=== PATIENT | male | born 2000 | race Hispanic/Latino ===

== ENCOUNTER 2019-09-23 21:35 | Emergency (ER) | payer SELFPAY ==
[2019-09-23 22:01] LABS: Absolute Lymphocytes (CBC) 1.7 K/uL (0.7-4.9); Basophils % 0.6 % (0-1.3); Hematocrit 39.7 % (39.6-49.0); Lymphocytes % 21.8 % (15.3-44.8); MPV 9.8 fL (7.6-11.3); RBC Red Blood Cell Count 4.36 M/uL (4.33-5.43)
[2019-09-23] MEDS ORDERED: NA CHLORIDE 0.9% 0 ML ONE (22:08)
[2019-09-23 22:14] LABS: Potassium 3.1 mmol/L (3.5-5.1)
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
[2019-09-23] MEDS ORDERED: DIAZEPAM 5 MG TABLET ONE (22:48)
[2019-09-23] MEDS ORDERED: POTASSIUM 25 MEQ EFFERV TAB ONE (22:48)
[2019-09-23 23:12] VITALS: BP 111/70; O2SAT 100
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
== END 2019-09-23 23:02 | disposition home or self-care (01) ==
LOC: ER 21:35
DX: S40.012A Contusion of left shoulder, initial encounter (principal); E87.6 Hypokalemia; V43.53XA Car driver injured in collision with pick-up truck in traffic accident, initial encounter
CPT/HCPCS: 36415; 70450; 71260; 72125; 74177; 80048; 85025; 86850; 86900; 86901; 99284; J7030; Q9967

== ENCOUNTER 2022-05-16 16:27 | Emergency (ER) | payer SELFPAY ==
--- OUTSIDE RECORDS SUMMARY | 2022-05-16 16:30 | XMS REPORT | Continuity of Care Document ---
:2000 Author Organization [facility] t Address [address] [place] [address] Care Team Providers Name Role Phone Pcp, Patient Does Not Have A Primary Care Physician [phone] KIA GILMAN Attending Clinician Unavailable Kia Diez Attending Clinician Problems This patient has no known problems. Allergies, Adverse Reactions, Alerts Allergy Allergy Status Severity Reaction(s) Onset Inactive Treating Comm ents Source Name Type Date Date Clinician NO KNOWN Drug Active Univers ALLERGIE Class ity of [facility] Social History Social Habit Start Date Stop Date Quantity Comments Source Exposure to Not sure [facility] SARS-CoV-2 (event) Medica l Branch Sex Assigned At [birth year] [facility] 00:00:00 00:00:00 Medical [place] Smoking Status Start Date Stop Date Source Unknown if ever smoked [facility] Medications Ordered Filled Start Stop Current Ordering Indication Dosage Frequency Signature Comments Components Source Medication Medication Date Date Medication? Clinician (SIG) Name Name ondansetron 2020-05- No 4mg 4 mg, Univ ers (ZOFRAN-ODT 05-21 Oral, ity of ) 04:45: 03:59 ONCE, 1 [place] disintegrat 00 :00 dose, On Medi usjey ing tablet Mon Branch 4 mg 03/20/21 at 2245, Routine ondansetron 2020-05 Yes [id number] 4mg Take 1 Univers (ZOFRAN 1-08 tablet by ity of ODT) 4 mg 00:00: mouth [place] disintegrat 00 every 8 Medic al ing tablet (eight) Branch hours as needed for Nausea and Vomiting (N/V). Vital Signs Vital Name Observation Time Observation Value Comments Source Systolic blood 2021-03-21 01:34:00 168 mm[Hg] [facility] Diastolic blood 2021-03-21 01:34:00 98 mm[facility]Hg] [facility] Heart rate 2021-03-21 01:33:00 94 /min [facility] Body temperature 2021-03-21 01:33:[address] [facility] Respiratory rate 2021-03-21 01:33:00 20 /min [facility] Body weight 2021-03-21 01:33:00 81.647 kg [facility] Oxygen saturation in 2021-03-21 01:33:00 100 /min [facility] Arterial blood by [facility] Pulse oximetry Branch Procedures Procedure Date / Time Performed Performing Clinician Sour e ASSIGNMENT OF BENEFITS 2021-03-21 02:13:57 Doctor Unassigned, No [facility] Branch NOTICE OF PRIVACY 2021-03-21 02:13:40 Doctor Unassigned, No [facility] CONSENT/REFUSAL FOR 2021-03-21 02:13:25 Doctor Unassigned, No [facility] DIAGNOSIS AND [facility] TREATMENT LIPASE 2021-03-21 02:05:00 Kia Gilman [facility] COMP. METABOLIC PANEL 2021-03-21 02:05:00 Kia Gilman [facility] ([id number]) [facility] CBC WITH DIFF 2021-03-21 02:05:00 Kia Gilman [facility] URINALYSIS 2021-03-21 02:05:00 Kia Gilman [facility] Encounters Start End Encounter Admission Attending Care Care Encounter Source Date/Time Date/Time Type Type Clinicians Facility Department ID 2021-03-20 2021-03-20 Emergency X HARI GILMAN ERT [id number] Univers 19:35:00 22:33:00 KIA shah [facility] 2021-03-20 2021-03-20 Emergency HARI Gilman [id number] Univers 19:35:00 22:33:00 [facility] [id number] i ty of [place] [id number] [facility] [id number] [facility] 084 Branch Results Test Description Test Time Test Comments Results Result Comments Source COMP. METABOLIC PANEL (77322) 2021-03-21 02:32:53 Test Item Value Reference Range Interpretation Comme nts NA (test code = 9670728485) 139 mmol/L 135-145 K (test code = 4670307021) 4.2 mmol/L 3.5-5.0 CL (test code = 2932575436) 99 mmol/L 98-108 CO2 TOTAL (test code = 6477075761) 30 mmol/L 23-31 AGAP (test code = 3939633864) 2-16 BUN (test code = 4349669633) 3 mg/dL 7-23 L GLUCOSE (test code = 0100793311) 112 mg/dL 70-110 H CREATININE (test code = 0.78 mg/dL 0.60-1.25 1789061696) TOTAL BILI (test code = 0.6 mg/dL 0.1-1.9 1385175099) CALCIUM (test code = 2610482451) 9.8 mg/dL 8.6-10.6 T PROTEIN (test code = 9481544399) 7.4 g/dL 6.3-8.2 ALBUMIN (test code = 8959047462) 4.6 g/dL 3.5-5.0 ALK PHOS (test code = 1868727344) 100 U/L 34-122 ALTv (test code = 1742-6) 39 U/L 5-50 AST(SGOT) (test code = 3579821375) 40 U/L 13-40 eGFR (test code = 4321802571) mL/min/1.73m2 ZACKARY (test code = ZACKARY) Association of Glomerular Filtration Rate (GFR) and Staging of Kidney Disease* + +-------- + ------+| GFR (mL/min/1.73 m2) ?| With Kidney Damage ?| ?Without Kidney Damage+ +-- + +| ?>90 ?| ?Stage one ?| ? Normal ?+ +------- + -------+| ?60-89 ?| ?Stage two ?| ? Decreased GFR ? + +-------- + ------+| ?30-59 ?| ?Stage three ?| ? Stage three ? + +-------- + ------+| ?15-29 ?| ?Stage four ? | ? Stage four ?+ +------- + -------+| ?<15 (or dialysis) ? ?| ?Stage five ? | ? Stage five ?+ +------- + -------+ *Each stage assumes the associated GFR level has been in effect for at least three months. ?Stages 1 to 5, with or without kidney disease, indicate chronic kidney disease. Notes: Determination of stages one and two (with eGFR >59mL/min/1.73 m2) requires estimation of kidney damage for at least three months as defined by structural or functional abnormalities of the kidney, manifested by either:Pathological abnormalities or Markers of kidney damage (including abnormalities in the composition of the blood or urine or abnormalities in imaging tests). Lab Interpretation (test code = Abnormal 70118-6) [facility] Test Item Value Reference Range Interpretation Comments LIPASE (test code = 2832181201) 80 U/L 0-220 Lab Interpretation (test code = Normal 40809-4) [facility] WITH [id number] 02:17:55 Test Item Value Reference Range Interpretation Comments WBC (test code = See_Comment [Automated 1784-2) message] The sy stem which generated this result transmitted reference range : 4.20 - 10.70 10*3/?L. The reference range was not used to interpret this result as normal/abnormal . RBC (test code = See_Comment [Automated 648-8) message] The sy stem which generated this result transmitted reference range : 4.26 - 5.52 10*6/?L. The reference range was not used to interpret this result as normal/abnormal . HGB (test code = 14.3 g/dL 12.2-16.4 718-7) HCT (test code = 42.6 % 38.4-49.3 4544-3) MCV (test code = 89.3 fL 81.7-95.6 787-2) MCH (test code = 30.0 pg 26.1-32.7 785-6) MCHC (test code = 33.6 g/dL 31.2-35.0 786-4) RDW-SD (test code = 39.8 fL 38.5-51.6 47783-1) RDW-CV (test code = 12.2 % 12.1-15.4 788-0) PLT (test code = See_Comment [Automated 777-3) message] The sy stem which generated this result transmitted reference range : 150 - 328 10*3/ ?L. The reference r abner was not used to interpret this result as normal/abnormal . MPV (test code = 10.5 fL 9.8-13.0 53172-3) NRBC/100 WBC (test See_Comment [Automat ed code = 2129185339) message] The system which generated this result transmitted reference range : 0.0 - 10.0 /100 WBCs. The refer ence range was not u sed to interpret th is result as normal/abnormal . NRBC x10^3 (test code <0.01 See_Comment [Auto mated = 3748159016) message] The s ystem which generated this result transmitted reference range : 10*3/?L. The reference range was not used to interpret this result as normal/abnormal . GRAN MAT (NEUT) % 60.5 % (test code = 770-8) IMM GRAN % (test code 0.90 % = 4120287453) LYMPH % (test code = 24.2 % 736-9) MONO % (test code = 9.0 % 5905-5) EOS % (test code = 4.4 % 713-8) BASO % (test code = 1.0 % 706-2) GRAN MAT x10^3(ANC) 6.46 10*3/uL 1.99-6.95 (test code = 2265299643) IMM GRAN x10^3 (test 0.10 10*3/uL 0.00-0.06 H code = 8956152189) LYMPH x10^3 (test code 2.59 10*3/uL 1.09-3.23 = 731-0) MONO x10^3 (test code 0.96 10*3/uL 0.36-1.02 = 742-7) EOS x10^3 (test code = 0.47 10*3/uL 0.06-0.53 711-2) BASO x10^3 (test code 0.11 10*3/uL 0.01-0.09 H = 704-7) Lab Interpretation Abnormal (test code = 84246-9) [facility]"
[2022-05-16 17:05] LABS: Urine Blood Negative (Negative); Urine Glucose Negative (Negative); Urine Protein Negative (Negative); Urine Specific Gravity >=1.030 (1.005-1.030)
[2022-05-16] MEDS ORDERED: NA CHLORIDE 0.9% 500 ML ONE (17:12)
[2022-05-16 17:14] LABS: Absolute Lymphocytes (CBC) 2.2 K/uL (0.7-4.9); Hematocrit 38.7 % (39.6-49.0); Lymphocytes % 20.2 % (15.3-44.8); MCV 87.4 fL (80-100); RBC Red Blood Cell Count 4.43 M/uL (4.33-5.43)
[2022-05-16 17:23] LABS: Urine Bacteria None Seen /HPF (<20); Urine Mucus Slight /HPF (None Seen); Urine RBC <5 /HPF (None Seen)
[2022-05-16 17:31] LABS: Albumin 3.5 g/dL (3.4-5.0); Bilirubin Total 0.6 mg/dL (0.2-1.0); Potassium 3.8 mmol/L (3.5-5.1)
[2022-05-16] MEDS ORDERED: FAMOTIDINE 20 MG/2 ML VIAL IV ONE (17:37)
[2022-05-16] MEDS ORDERED: ONDANSETRON 4 MG/2 ML VIAL ONE (17:37)
[2022-05-16] MEDS ORDERED: MORPHINE 4 MG/ML SYR ONE (17:37)
[2022-05-16] MEDS ORDERED: NA CHLORIDE 0.9% 1,000 ML ONE (17:37)
--- NOTE | 2022-05-16 18:06 | RAD REPORT ---
EXAM DESCRIPTION: CT - Abdomen Pelvis W Contrast - 05/16/2022 5:53 pm CLINICAL HISTORY: Abdominal pain COMPARISON: none. TECHNIQUE: Computed axial tomography of the abdomen pelvis was obtained. 100 cc Isovue-300 was admin istered intravenously. Oral contrast was not requested which limits evaluation of bowel and appendix All CT scans are performed using dose optimization technique as appropriate and may include automated exposure control or mA/KV adjustment according to patient size. FINDINGS: The liver, spleen, pancreas, adrenal and kidneys appear unremarkable. There is no evidence of diverticulitis. Normal appendix. Small bilateral inguinal hernias. Small inguinal hernias IMPRESSION: No acute abnormality is displayed.
[2022-05-16] MEDS ORDERED: KETOROLAC 30 MG/ML INJ ONE (18:35)
--- NOTE | 2022-05-16 19:13 | EDPHYS ---
Physician Documentation [facility] Name: Manny Rapp Age: 22 yrs Sex: Male : 2000 Arrival Date: 05/16/2022 Time: 16:30 Bed 7 Private MD: ED Physician Christopher Hankins HPI: 05/16 23:38 This 22 yrs old Male presents to ER via Ambulatory with complaints of kb Abdominal Pain. 23:38 The patient presents with abdominal pain in the left upper quadrant, in the left lower kb quadrant. Onset: The symptoms/episode began/occurred 3 day(s) ago. The symptoms do not radiate. Associated signs and symptoms: Pertinent positives: nausea and vomiting, Pertinent negatives: constipation, diarrhea, fever. The symptoms are described as constant. Modifying factors: The symptoms are alleviated by nothing, the symptoms are aggravated by nothing. Severity of pain: At its worst the pain was moderate in the emergency department the pain is unchanged. The patient has not experienced similar symptoms in the past. The patient has not recently seen a physician. Historical: - Allergies: 17:17 No Known Allergies; ap3 - Home Meds: 17:17 None [Active]; ap3 - PMHx: 17:17 None; ap3 - Immunization history:: Client reports having NOT received the Covid vaccine. Flu vaccine is not up to date. - Social history:: Smoking status: Reported history of juuling and/or vaping. ROS: 23:37 Constitutional: Negative for fever, chills, and weight loss. kb 23:37 Abdomen/GI: Positive for abdominal pain, nausea and vomiting, Negative for diarrhea, constipation. 23:37 All other systems are negative. Exam: 23:37 Constitutional: This is a well developed, well nourished patient who is awake, alert, kb and in no acute distress. Head/Face: Normocephalic, atraumatic. ENT: Moist Mucous membranes Cardiovascular: Regular rate and rhythm with a normal S1 and S2. No gallops, murmurs, or rubs. No pulse deficits. Respiratory: Respirations even and unlabored. No increased work of breathing. Talking in full sentences Skin: Warm, dry with normal turgor. Normal color. MS/ Extremity: Pulses equal, no cyanosis. Neurovascular intact. Full, normal range of motion. Neuro: Awake and alert, GCS 15, oriented to person, place, time, and situation. Moves all extremities. Normal gait. Psych: Awake, alert, with orientation to person, place and time. Behavior, mood, and affect are within normal limits. 23:37 Abdomen/GI: Inspection: abdomen appears normal, Bowel sounds: normal, Palpation: soft, in all quadrants, mild abdominal tenderness, in the left upper quadrant and left lower quadrant. Vital Signs: 17:16 BP 124 / 84; Pulse 86; Resp 17; Temp 98.4; Pulse Ox 100% ; Weight 90.72 kg; Height 5 ap3 ft. 11 in. (180.34 cm); Pain 8/10; 17:59 Pulse 87; Resp 18; Temp 98.6(O); Pulse Ox 99% on R/A; ld1 18:34 BP 123 / 81; Pulse 66; Resp 18; Pulse Ox 100% on R/A; Pain 8/10; ld1 17:16 Body Mass Index 27.89 (90.72 kg, 180.34 cm) ap3 MDM: 16:34 Patient medically screened. patrick 17:22 Patient medically screened. kb 23:36 Data reviewed: vital signs, nurses notes. Data interpreted: Pulse oximetry: on room air kb is 100 %. Interpretation: normal. Counseling: I had a detailed discussion with the patient and/or guardian regarding: the historical points, exam findings, and any diagnostic results supporting the discharge/admit diagnosis, lab results, radiology results, the need for outpatient follow up, a family practitioner, to return to the emergency department if symptoms worsen or persist or if there are any questions or concerns that arise at home. 23:37 Differential diagnosis: diverticulitis, gastritis, gastroesophageal reflux disease, kb Ureterolithiasis. 05/16 16:35 Order name: CBC with Diff; Complete Time: 17:19 patrick 05/16 16:35 Order name: CMP; Complete Time: 18:34 patrick 05/16 16:35 Order name: Lipase; Complete Time: 18:34 patrick 05/16 16:35 Order name: Urine Microscopic Only; Complete Time: 17:23 patrick 05/16 16:35 Order name: CT Abd/Pelvis - IV Contrast Only; Complete Time: 18:34 patrick 05/16 17:05 Order name: Urine Dipstick-Ancillary; Complete Time: 17:18 EDMS 05/16 16:35 Order name: IV Saline Lock; Complete Time: 17:06 [facility] 05/16 16:35 Order name: Labs collected and sent; Complete Time: 17:06 [facility] 05/16 16:35 Order name: Urine Dipstick-Ancillary (obtain specimen); Complete Time: 17:06 [facility] Administered Medications: 17:35 Drug: NS 0.9% 1000 ml Route: IV; Rate: 1 bolus; Site: left antecubital; mb9 18:04 Follow up: Response: No adverse reaction ld1 17:38 Drug: Pepcid (famotidine) 20 mg Route: IVP; Site: left antecubital; mb9 18:04 Follow up: Response: No adverse reaction ld1 17:38 Drug: Zofran (Ondansetron) 4 mg Route: IVP; Site: left antecubital; mb9 18:04 Follow up: Response: No adverse reaction ld1 17:44 Drug: morphine 4 mg Route: IVP; Infused Over: 4 mins; Site: left antecubital; mb9 18:05 Follow up: Response: No adverse reaction; Pain is decreased ld1 18:37 Drug: Ketorolac 15 mg Route: IVP; Site: left antecubital; ld1 18:56 Follow up: Response: No adverse reaction ld1 Disposition Summary: 05/16/22 19:12 Discharge Ordered Location: Home kb Condition: Stable kb Diagnosis - Abdominal pain, Generalized kb Followup: kb - With: Emergency Department - When: As needed - Reason: Worsening of condition Followup: kb - With: Private Physician - When: 2 - 3 days - Reason: Recheck today's complaints, Continuance of care, Re-evaluation by your physician Discharge Instructions: - Discharge Summary Sheet kb - Abdominal Pain, Adult, [id number] kb Forms: - Medication Reconciliation Form kb - Thank You Letter kb - Antibiotic Education kb - Prescription Opioid Use kb Prescriptions: - Zofran 4 mg Oral Tablet - take 1 tablet by ORAL route every 6 hours As needed; 20 tablet; Refills: 0, kb Product Selection Permitted - dicyclomine 20 mg Oral Tablet - take 1 tablet by ORAL route 4 times per day As needed; 20 tablet; Refills: 0, kb Product Selection Permitted Signatures: Dispatcher [employer] EDRuth Jasso FNP-C ESCROW ASSISTANT-Christopher Irwin MD MD cha Prokisch, Amanda, RN RN ap3 Stefany Rodriguez RN RN ld1 Lady Trivedi, RN RN mb9
--- NOTE | 2022-05-16 19:13 | ER ---
Nurse's Notes [facility] Name: Manny Rapp Age: 22 yrs Sex: Male : 2000 Arrival Date: 05/16/2022 Time: 16:30 Bed 7 Private MD: Diagnosis: Abdominal pain, Generalized Presentation: 05/16 17:16 Chief complaint: Patient states: he has pain on his left side that has been going on ap3 for 2-3 days. patient reports nausea and vomiting that is also associated with the pain. patient reports normal bowel movements and normal urination. Coronavirus screen: At this time, the client does not indicate any symptoms associated with coronavirus-19. Ebola Screen: No symptoms or risks identified at this time. Initial Sepsis Screen: Does the patient meet any 2 criteria? No. Patient's initial sepsis screen is negative. Does the patient have a suspected source of infection? No. Patient's initial sepsis screen is negative. Risk Assessment: Do you want to hurt yourself or someone else? Patient reports no desire to harm self or others. Onset of symptoms was October 11, 2022. 17:16 Method Of Arrival: Ambulatory ap3 17:16 Acuity: RADHA 3 ap3 Triage Assessment: 17:18 General: Appears in no apparent distress. Behavior is calm, cooperative. Pain: ap3 Complains of pain in left upper quadrant Pain currently is 8 out of 10 on a pain scale. at worst was 10 out of 10 on a pain scale. Pain: Also complains of nausea. Neuro: Level of Consciousness is awake, alert, obeys commands, Oriented to person, place, time, situation. Cardiovascular: Patient's skin is warm and dry. Respiratory: Airway is patent Respiratory effort is even, unlabored, Respiratory pattern is regular, symmetrical. GI: Reports lower abdominal pain, upper abdominal pain, nausea, vomiting. Historical: - Allergies: 17:17 No Known Allergies; ap3 - Home Meds: 17:17 None [Active]; ap3 - PMHx: 17:17 None; ap3 - Immunization history:: Client reports having NOT received the Covid vaccine. Flu vaccine is not up to date. - Social history:: Smoking status: Reported history of juuling and/or vaping. Screenin:[address] [facility] ED Fall Risk Assessment (Adult) History of falling in the last 3 months, ap3 including since admission No falls in past 3 months (0 pts). Abuse screen: Denies threats or abuse. Nutritional screening: No deficits noted. Tuberculosis screening: No symptoms or risk factors identified. Assessment: 17:45 Reassessment: pt taken to CT via stretcher. mb9 17:59 General: Appears in no apparent distress. uncomfortable, Behavior is calm, cooperative, ld1 appropriate for age. Pain: Complains of pain in abdomen and left upper quadrant Pain does not radiate. Pain currently is 9 out of 10 on a pain scale. Quality of pain is described as throbbing. Neuro: Level of Consciousness is awake, alert, obeys commands, Oriented to person, place, time, situation. Cardiovascular: Capillary refill < 3 seconds Patient's skin is warm and dry. Respiratory: Airway is patent Respiratory effort is even, unlabored. GI: Abdomen is flat, non-distended, Bowel sounds present X 4 quads. Abd is soft Abdomen is tender to palpation X 4 quads. GI: No signs and/or symptoms were reported involving the gastrointestinal system. : No signs and/or symptoms were reported regarding the genitourinary system. EENT: No signs and/or symptoms were reported regarding the EENT system. Derm: No signs and/or symptoms reported regarding the dermatologic system. Musculoskeletal: No signs and/or symptoms reported regarding the musculoskeletal system. 18:28 Reassessment: Patient appears in no apparent distress at this time. Patient and/or ld1 family updated on plan of care and expected duration. Pain level reassessed. Notified ERP of pain unchanged. Patient states symptoms have not improved. 19:22 Reassessment: Patient appears in no apparent distress at this time. Patient and/or jb4 family updated on plan of care and expected duration. Pain level reassessed. Patient is alert, oriented x 3, equal unlabored respirations, skin warm/dry/pink. Patient states feeling better. Vital Signs: 17:16 BP 124 / 84; Pulse 86; Resp 17; Temp 98.4; Pulse Ox 100% ; Weight 90.72 kg; Height 5 ap3 ft. 11 in. (180.34 cm); Pain 8/10; 17:59 Pulse 87; Resp 18; Temp 98.6(O); Pulse Ox 99% on R/A; ld1 18:34 BP 123 / 81; Pulse 66; Resp 18; Pulse Ox 100% on R/A; Pain 8/10; ld1 17:16 Body Mass Index 27.89 (90.72 kg, 180.34 cm) ap3 ED Course: 16:30 Patient arrived in ED. mr 16:34 Christopher Hankins MD is Attending Physician. patrick 17:05 Inserted saline lock: 20 gauge in left antecubital area, using aseptic technique. Blood rs5 collected. 17:06 CBC with Diff Sent. rs5 17:06 CMP Sent. rs5 17:06 Lipase Sent. rs5 17:06 Urine Microscopic Only Sent. rs5 17:17 Triage completed. ap3 17:18 Ruth Medina FNP-C [facility]. kb 17:19 Arm band placed on right wrist. ap3 17:19 Patient has correct armband on for positive identification. ap3 17:38 Stefany Rodriguez, GIO is Primary Nurse. ld1 17:55 CT Abd/Pelvis - IV Contrast Only In Process Unspecified. EDMS 17:59 No provider procedures requiring assistance completed. ld1 19:22 IV discontinued, intact, bleeding controlled, No redness/swelling at site. Pressure jb4 dressing applied. Administered Medications: 17:35 Drug: NS 0.9% 1000 ml Route: IV; Rate: 1 bolus; Site: left antecubital; mb9 18:04 Follow up: Response: No adverse reaction ld1 17:38 Drug: Pepcid (famotidine) 20 mg Route: IVP; Site: left antecubital; mb9 18:04 Follow up: Response: No adverse reaction ld1 17:38 Drug: Zofran (Ondansetron) 4 mg Route: IVP; Site: left antecubital; mb9 18:04 Follow up: Response: No adverse reaction ld1 17:44 Drug: morphine 4 mg Route: IVP; Infused Over: 4 mins; Site: left antecubital; mb9 18:05 Follow up: Response: No adverse reaction; Pain is decreased ld1 18:37 Drug: Ketorolac 15 mg Route: IVP; Site: left antecubital; ld1 18:56 Follow up: Response: No adverse reaction ld1 Medication: 17:19 VIS not applicable for this client. ap3 Outcome: 19:12 Discharge ordered by . kb 19:22 Discharged to home ambulatory. jb4 19:22 Condition: stable 19:22 Discharge instructions given to patient, Instructed on discharge instructions, follow up and referral plans. medication usage, Demonstrated understanding of instructions, follow-up care, medications, Prescriptions given X 2. 19:24 Patient left the ED. jb4 Signatures: Dispatcher [employer] EDMS Ruth Medina, STRUCTURAL STEEL TRADES WORKER-C STRUCTURAL STEEL TRADES WORKER-Ckb Christopher Hankins MD MD cha Rivera, Mary mr Bryson, James, RN RN jb4 Dianne Lenz RN RN ap3 Stefany Rodriguez RN RN ld1 Shikha, Lady Norwood, RN RN mb9 Navi Dillon rs5
[2022-05-16 20:09] VITALS: TEMP 98.6
[2022-05-16 20:11] VITALS: BP 123/81; O2SAT 100
== END 2022-05-16 19:24 | disposition home or self-care (01) ==
LOC: ER 16:27
DX: R10.84 Generalized abdominal pain (principal)
CPT/HCPCS: 36415; 74177; 80053; 81003; 81015; 83690; 85025; 96374; 96375; 99284; J2405; J7030; J7050; Q9967

== ENCOUNTER 2022-05-24 06:52 | Emergency (ER) | payer SELFPAY ==
--- OUTSIDE RECORDS SUMMARY | 2022-05-24 06:54 | XMS REPORT | Continuity of Care Document ---
:2000 Author Organization [facility] t Address [address] [place] [address] Care Team Providers Name Role Phone Pcp, Patient Does Not Have A Primary Care Physician [id number] KIA GILMAN Attending Clinician Unavailable Kia Diez Attending Clinician Problems This patient has no known problems. Allergies, Adverse Reactions, Alerts Allergy Allergy Status Severity Reaction(s) Onset Inactive Treating Comm ents Source Name Type Date Date Clinician NO KNOWN Drug Active Univers ALLERGIE Class ity of [facility] Social History Social Habit Start Date Stop Date Quantity Comments Source Exposure to Not sure [facility] SARS-CoV-2 (event) Medica l Branch Sex Assigned At [birth year] [facility] 00:00:00 00:00:00 [facility] [place] Smoking Status Start Date Stop Date Source Unknown if ever smoked [facility] Medications Ordered Filled Start Stop Current Ordering Indication Dosage Frequency Signature Comments Components Source Medication Medication Date Date Medication? Clinician (SIG) Name Name ondansetron 2020-05- No 4mg 4 mg, Univ ers (ZOFRAN-ODT 05-21 Oral, ity of ) 04:45: 03:59 ONCE, 1 [place] disintegrat 00 :00 dose, On Medi sujey ing tablet Mon Branch 4 mg 03/20/21 at 2245, Routine ondansetron 2020-05 Yes [id number] 4mg Take 1 Univers (ZOFRAN 1-08 tablet by ity of ODT) 4 mg 00:00: mouth [place] disintegrat 00 every 8 Medic al ing tablet (eight) Branch hours as needed for Nausea and Vomiting (N/V). Vital Signs Vital Name Observation Time Observation Value Comments Source Systolic blood 2021-03-21 01:34:00 168 [facility]Hg[facility] [place] [place] Diastolic blood 2021-03-21 01:34:00 98 mm[facility]Hg[facility] rate 2021-03-21 01:33:00 94 /min [facility] Body temperature 2021-03-21 01:33:00 36.78 Kailey [facility] Respiratory rate 2021-03-21 01:33:00 20 /min [facility] Body weight 2021-03-21 01:33:00 81.647 kg [facility] Oxygen saturation in 2021-03-21 01:33:00 100 /min [facility] Arterial blood by [facility] Pulse oximetry Branch Procedures Procedure Date / Time Performed Performing Clinician Sour e ASSIGNMENT OF BENEFITS 2021-03-21 02:13:57 Doctor Unassigned, No [facility] NOTICE OF PRIVACY 2021-03-21 02:13:40 Doctor Unassigned, No [facility] CONSENT/REFUSAL FOR 2021-03-21 02:13:25 Doctor Unassigned, No [facility] DIAGNOSIS AND [facility] TREATMENT LIPASE 2021-03-21 02:05:00 Kia Gilman [facility] COMP. METABOLIC PANEL 2021-03-21 02:05:00 Kia Gilman [facility] ([id number]) [facility] CBC WITH DIFF 2021-03-21 02:05:00 Kia Gilman [facility] URINALYSIS 2021-03-21 02:05:00 Kia Gilman [facility] Encounters Start End Encounter Admission Attending Care Care Encounter Source Date/Time Date/Time Type Type Clinicians Facility Department ID 2021-03-20 2021-03-20 Emergency X HARI GILMAN ERT [id number] Univers 19:35:00 22:33:00 KIA shah [facility] 2021-03-20 2021-03-20 Emergency HARI Gilman [id number] Univers 19:35:00 22:33:00 [facility] [id number] i ty of [place] [id number] [facility] [id number] [facility] 084 Branch Results Test Description Test Time Test Comments Results Result Comments Source COMP. METABOLIC PANEL (25088) 2021-03-21 02:32:53 Test Item Value Reference Range Interpretation Comme nts NA (test code = 9946281430) 139 mmol/L 135-145 K (test code = 1863340773) 4.2 mmol/L 3.5-5.0 CL (test code = 9897765953) 99 mmol/L 98-108 CO2 TOTAL (test code = 5885568285) 30 mmol/L 23-31 AGAP (test code = 5788149182) 2-16 BUN (test code = 9933373917) 3 mg/dL 7-23 L GLUCOSE (test code = 8948297117) 112 mg/dL 70-110 H CREATININE (test code = 0.78 mg/dL 0.60-1.25 3393007396) TOTAL BILI (test code = 0.6 mg/dL 0.1-1.1 0675280058) CALCIUM (test code = 1996771475) 9.8 mg/dL 8.6-10.6 T PROTEIN (test code = 0223278440) 7.4 g/dL 6.3-8.2 ALBUMIN (test code = 7340220369) 4.6 g/dL 3.5-5.0 ALK PHOS (test code = 8180143569) 100 U/L 34-122 ALTv (test code = 1742-6) 39 U/L 5-50 AST(SGOT) (test code = 3135913008) 40 U/L 13-40 eGFR (test code = 9452183977) mL/min/1.73m2 ZACKARY (test code = ZACKARY) Association [...] tests). Lab Interpretation (test code = Abnormal 44283-5) [facility]58 Test Item Value Reference Range Interpretation Comments LIPASE (test code = 7774570714) 80 U/L 0-220 Lab Interpretation (test code = Normal 47576-8) [facility] [id number] 02:17:55 Test Item Value Reference Range Interpretation Comments WBC (test code = See_Comment [Automated 5463-2) message] The sy stem which generated this result transmitted reference range : 4.20 - 10.70 10*3/?L. The reference range was not used to interpret this result as normal/abnormal . RBC (test code = See_Comment [Automated 779-8) message] The sy stem which generated this [...] RDW-SD (test code = 39.8 fL 38.5-51.6 77595-7) RDW-CV (test code = 12.2 % 12.1-15.4 788-0) PLT (test code = See_Comment [Automated 777-3) message] The sy stem which generated this result transmitted reference range : 150 - 328 10*3/ ?L. The reference r abner was not used to interpret this result as normal/abnormal . MPV (test code = 10.5 fL 9.8-13.0 34087-4) NRBC/100 WBC (test See_Comment [Automat ed code = 3881928954) message] The system which generated this result transmitted reference range : 0.0 - 10.0 /100 WBCs. The refer ence range was not u sed to interpret th is result as normal/abnormal . NRBC x10^3 (test code <0.01 See_Comment [Auto mated = 2960277746) message] The s ystem which generated this result transmitted reference range : 10*3/?L. The reference range was not used to interpret this result as normal/abnormal . GRAN MAT (NEUT) % 60.5 % (test code = 770-8) IMM GRAN % (test code 0.90 % = 0735923189) LYMPH % (test code = 24.2 % 736-9) MONO % (test code = 9.0 % 5905-5) EOS % (test code = 4.4 % 713-8) BASO % (test code = 1.0 % 706-2) GRAN MAT x10^3(ANC) 6.46 10*3/uL 1.99-6.95 (test code = 8822007616) IMM GRAN x10^3 (test 0.10 10*3/uL 0.00-0.06 H code = 3188891983) LYMPH x10^3 (test code 2.59 10*3/uL 1.09-3.23 = 731-0) MONO x10^3 (test code 0.96 10*3/uL 0.36-1.02 = 742-7) EOS x10^3 (test code = 0.47 10*3/uL 0.06-0.53 711-2) BASO x10^3 (test code 0.11 10*3/uL 0.01-0.09 H = 704-7) Lab Interpretation Abnormal (test code = 74698-8) [facility]"
--- NOTE | 2022-05-24 07:41 | RAD REPORT ---
EXAM DESCRIPTION: CT - Thorax Wo Con - 05/24/2022 7:27 am CLINICAL HISTORY: Chest and rib pain COMPARISON: none TECHNIQUE: Computed axial tomography of the chest was obtained. Contrast was not requested. All CT scans are performed using dose optimization technique as appropriate and may include automated exposure control or mA/KV adjustment according to patient size. FINDINGS: The evaluation of mediastinum, leslie and vessels is limited secondary to lack of IV contras t administration. The lungs are clear. No mediastinal or hilar lymphadenopathy is seen. A pleural effusion is not present. No pericardial effusion. Rib fracture is not seen IMPRESSION: Unremarkable examination
[2022-05-24 07:48] LABS: Absolute Lymphocytes (CBC) 1.2 K/uL (0.7-4.9); Hematocrit 44.3 % (39.6-49.0); Lymphocytes % 12.1 % (15.3-44.8); MCV 87.7 fL (80-100); MPV 8.2 fL (7.6-11.3); RBC Red Blood Cell Count 5.05 M/uL (4.33-5.43)
[2022-05-24 07:49] LABS: Albumin 4.1 g/dL (3.4-5.0); Potassium 3.4 mmol/L (3.5-5.1); Protein, Total 8.1 g/dL (6.4-8.2)
--- NOTE | 2022-05-24 09:01 | RAD REPORT ---
EXAM DESCRIPTION: CT - Abdomen Pelvis W Contrast - 05/24/2022 8:44 am CLINICAL HISTORY: Abdominal pain/left flank pain COMPARISON: May 16, 2022 TECHNIQUE: Computed axial tomography of the abdomen pelvis was obtained. 100 cc Isovue-300 was admin istered intravenously. Oral contrast was not requested which limits evaluation of bowel and appendix All CT scans are performed using dose optimization technique as appropriate and may include automated exposure control or mA/KV adjustment according to patient size. FINDINGS: The liver, spleen, pancreas, adrenal and kidneys appear unremarkable. There is no evidence of diverticulitis. Normal appendix. Small bilateral inguinal hernias. Small inguinal hernias IMPRESSION: No acute abnormality is displayed.
--- NOTE | 2022-05-24 09:39 | ER ---
Nurse's Notes [facility] Name: Manny Rapp Age: 22 yrs Sex: Male : 2000 Arrival Date: 05/24/2022 Time: 06:55 Bed 16 Private MD: Diagnosis: Upper abdominal pain, unspecified Presentation: 05/24 07:04 Chief complaint: Patient states: LUQ PAIN. WAS HERE LAST WEEK FOR SAME PAIN AND STATES jj7 THEY DIDN'T FIND ANYTHING WRONG. PAIN IS WORSE WHEN HE MOVES EMS states: LUQ PAIN. Coronavirus screen: Vaccine status: Patient reports being unvaccinated. At this time, the client does not indicate any symptoms associated with coronavirus-19. Ebola Screen: No symptoms or risks identified at this time. Initial Sepsis Screen: Does the patient meet any 2 criteria? No. Patient's initial sepsis screen is negative. Does the patient have a suspected source of infection? No. Patient's initial sepsis screen is negative. Risk Assessment: Do you want to hurt yourself or someone else? Patient reports no desire to harm self or others. Onset of symptoms was May 24, 2022. 07:04 Method Of Arrival: EMS: [facility] jj7 07:04 Acuity: RADHA 3 jj7 Triage Assessment: 07:07 General: Appears in no apparent distress. uncomfortable, Behavior is calm, cooperative, jj7 appropriate for age. Pain: Complains of pain in left lateral anterior chest. Historical: - Allergies: 07:07 No Known Allergies; jj7 - PMHx: 07:07 None; jj7 - PSHx: 07:07 None; jj7 - Immunization history:: Adult Immunizations Client reports having NOT received the Covid vaccine. Flu vaccine is not up to date. - Social history:: Smoking status: Reported history of juuling and/or vaping. Screenin:[address] [facility] ED Fall Risk Assessment (Adult) History of falling in the last 3 months, ld1 including since admission No falls in past 3 months (0 pts). Abuse screen: Denies threats or abuse. Denies injuries from another. Nutritional screening: No deficits noted. Tuberculosis screening: No symptoms or risk factors identified. Assessment: 07:24 Reassessment: See triage assessment. ld1 07:24 Pain: Complains of pain in diaphragm Pain does not radiate. Pain currently is 10 out of ld1 10 on a pain scale. Neuro: Level of Consciousness is awake, alert, obeys commands, Oriented to person, place, time, situation. Respiratory: Airway is patent Respiratory effort is even, unlabored. 08:23 Reassessment: No changes from previously documented assessment. Patient and/or family ld1 updated on plan of care and expected duration. Pain level reassessed. Patient states symptoms have not improved. 10:38 Reassessment: Patient appears in no apparent distress at this time. No changes from ld1 previously documented assessment. Patient and/or family updated on plan of care and expected duration. Pain level reassessed. Patient is alert, oriented x 3, equal unlabored respirations, skin warm/dry/pink. 10:39 GI: Bowel sounds present X 4 quads. ld1 Vital Signs: 07:04 BP 134 / 84; Pulse 99; Resp 17; Temp 97.8; Pulse Ox 99% ; Weight 86.18 kg; Height 5 ft. jj7 11 in. (180.34 cm); Pain 10/10; 07:25 BP 130 / 85; Pulse 94; Resp 18; Pulse Ox 100% on R/A; Pain 10/10; ld1 08:23 BP 127 / 91; Pulse 86; Resp 18; Pulse Ox 99% on R/A; Pain 9/10; ld1 07:04 Body Mass Index 26.50 (86.18 kg, 180.34 cm) jj7 Vitals: 10:38 Cardiac Rhythm Assessment Regular. ld1 ED Course: 06:55 Patient arrived in ED. wm 06:59 [facility]C [facility] kb 06:59 Chris Krishnan MD is Attending Physician. kb 07:07 Attending Physician role handed off by Chris Krishnan MD patrick 07:07 Christopher Hankins MD is Attending Physician. patrick 07:07 Triage completed. jj7 07:07 Arm band placed on right wrist. Patient placed in the treatment room, on a stretcher. jj7 07:13 Stefany Rodriguez, GIO is Primary Nurse. ld1 07:24 No provider procedures requiring assistance completed. Maintain EMS IV. Dressing ld1 intact. Good blood return noted. Site clean \T\ dry. Gauge \T\ site: 20G RH. 07:25 Patient has correct armband on for positive identification. Placed in gown. Bed in low ld1 position. Call light in reach. Side rails up X2. court monitor on. Pulse ox on. NIBP on. Door closed. Noise minimized. Warm blanket given. 07:28 CT Chest Wo Con In Process Unspecified. EDMS 08:46 CT Abd/Pelvis - IV Contrast Only In Process Unspecified. EDMS 10:39 IV discontinued, intact, bleeding controlled, No redness/swelling at site. ld1 Administered Medications: 10:00 Drug: Ketorolac 15 mg Route: IVP; Site: right hand; ld1 Medication: 07:25 VIS not applicable for this client. ld1 Outcome: 09:39 Discharge ordered by . kb 10:39 Discharged to home ambulatory, with family. ld1 10:39 Condition: stable 10:39 Discharge instructions given to patient, family, Instructed on discharge instructions, follow up and referral plans. medication usage, Demonstrated understanding of instructions, follow-up care, medications, Prescriptions given X 2. 10:48 Patient left the ED. ld1 Signatures: Dispatcher [employer] EDMS Ruth Medina, SWITCH REPAIRER-C SWITCH REPAIRER-Ckb Christopher Hankins MD MD cha Dibbern, Lauren, RN RN ld1 Iris Redd Juwairiyah RN RN jj7
--- NOTE | 2022-05-24 09:39 | EDPHYS ---
Physician Documentation [facility] Name: Manny Rapp Age: 22 yrs Sex: Male : 2000 Arrival Date: 05/24/2022 Time: 06:55 Bed 16 Private MD: ED Physician Christopher Hankins HPI: 05/24 11:25 This 22 yrs old Male presents to ER via EMS with complaints of Abdominal Pain. kb 11:25 The patient presents with abdominal pain in the left upper quadrant. Onset: The kb symptoms/episode began/occurred 1 week(s) ago. The symptoms do not radiate. Associated signs and symptoms: Pertinent positives: nausea and vomiting. The symptoms are described as constant. Modifying factors: The symptoms are alleviated by nothing, the symptoms are aggravated by movement, pressure. Severity of pain: At its worst the pain was moderate in the emergency department the pain is unchanged. The patient has not experienced similar symptoms in the past. The patient has been recently seen at the [facility] Emergency Department, last week, for similar complaints labs were performed, CT scan was performed. Pt states he had a cough for a while, then abd pain started last week. Pt was seen here, normal labs and CT scan. States pain decreased over the week, but came back this morning. States he vomited this morning (which is normal for him) and felt a pop. Tenderness to LUQ and lateral rib pain that is reproducible. . Historical: - Allergies: 07:07 No Known Allergies; jj7 - PMHx: 07:07 None; jj7 - PSHx: 07:07 None; jj7 - Immunization history:: Adult Immunizations Client reports having NOT received the Covid vaccine. Flu vaccine is not up to date. - Social history:: Smoking status: Reported history of juuling and/or vaping. ROS: 11:20 Constitutional: Negative for fever, chills, and weight loss. kb 11:20 Cardiovascular: Positive for chest pain, of the left lateral anterior chest. 11:20 Abdomen/GI: Positive for abdominal pain. 11:20 All other systems are negative. Exam: 11:20 Constitutional: This is a well developed, well nourished patient who is awake, alert, kb and in no acute distress. Head/Face: Normocephalic, atraumatic. ENT: Moist Mucous membranes Cardiovascular: Regular rate and rhythm with a normal S1 and S2. No gallops, murmurs, or rubs. No pulse deficits. Respiratory: Respirations even and unlabored. No increased work of breathing. Talking in full sentences Abdomen/GI: Soft, non-tender. No distention Back: No spinal tenderness. No costovertebral tenderness. Full range of motion. Skin: Warm, dry with normal turgor. Normal color. MS/ Extremity: Pulses equal, no cyanosis. Neurovascular intact. Full, normal range of motion. Neuro: Awake and alert, GCS 15, oriented to person, place, time, and situation. Moves all extremities. Normal gait. Psych: Awake, alert, with orientation to person, place and time. Behavior, mood, and affect are within normal limits. 11:20 Chest/axilla: Palpation: tenderness, that is moderate, of the left lateral anterior chest, that totally reproduces the patient's complaints. Vital Signs: 07:04 BP 134 / 84; Pulse 99; Resp 17; Temp 97.8; Pulse Ox 99% ; Weight 86.18 kg; Height 5 ft. jj7 11 in. (180.34 cm); Pain 10/10; 07:25 BP 130 / 85; Pulse 94; Resp 18; Pulse Ox 100% on R/A; Pain 10/10; ld1 08:23 BP 127 / 91; Pulse 86; Resp 18; Pulse Ox 99% on R/A; Pain 9/10; ld1 07:04 Body Mass Index 26.50 (86.18 kg, 180.34 cm) j7 MDM: 07:07 Patient medically screened. [facility] 11:20 Data reviewed: vital signs, nurses notes. kb 11:24 Differential diagnosis: diverticulitis, gastritis, gastroesophageal reflux disease, kb pleurisy, costochondritis, rib fx. Consideration of Admission/Observation Escalation of care including admission/observation considered. Counseling: I had a detailed discussion with the patient and/or guardian regarding: the historical points, exam findings, and any diagnostic results supporting the discharge/admit diagnosis, lab results, radiology results, the need for outpatient follow up, a family practitioner, a windscreen fitter, to return to the emergency department if symptoms worsen or persist or if there are any questions or concerns that arise at home. 05/24 07:10 Order name: CBC with Diff; Complete Time: 07:54 kb 05/24 07:10 Order name: CMP; Complete Time: 07:54 kb 05/24 07:10 Order name: Lipase; Complete Time: 07:54 kb 05/24 07:10 Order name: CT Chest Wo Con; Complete Time: 07:54 kb 05/24 08:05 Order name: CT Abd/Pelvis - IV Contrast Only; Complete Time: 09:08 kb 05/24 09:12 Order name: Tw[place]gs Screen Profile; Complete Time: 09:29 kb 05/24 07:10 Order name: IV Saline Lock; Complete Time: 07:24 kb 05/24 07:10 Order name: Labs collected and sent; Complete Time: 07:24 kb Administered Medications: 10:00 Drug: Ketorolac 15 mg Route: IVP; Site: right hand; ld1 Disposition Summary: 05/24/22 09:39 Discharge Ordered Location: Home kb Condition: Stable kb Diagnosis - Upper abdominal pain, unspecified kb Followup: kb - With: Emergency Department - When: As needed - Reason: Worsening of condition Followup: kb - With: Private Physician - When: 2 - 3 days - Reason: Recheck today's complaints, Continuance of care, Re-evaluation by your physician Discharge Instructions: - Discharge Summary Sheet kb - Musculoskeletal Pain kb - Abdominal Pain, Adult, [id number] kb Forms: - Medication Reconciliation Form kb - Thank You Letter kb - Antibiotic Education kb - Prescription Opioid Use kb Prescriptions: - Diclofenac Sodium 75 mg Oral tablet,delayed release (DR/EC) - take 1 tablet by ORAL route 2 times per day As needed; 30 tablet; Refills: 0, kb Product Selection Permitted - orphenadrine citrate 100 mg Oral Tablet Sustained Release - take 1 tablet by ORAL route 2 times per day As needed; 20 tablet; Refills: 0, kb Product Selection Permitted Addendum: 05/25/2022 13:29 Co-signature as Attending Physician, Christopher Hankins MD I agree with the assessment and c gibson plan of care. Signatures: Dispatcher [employer] Ruth Marques, MAINTENANCE OF WAY SUPERVISOR-C MAINTENANCE OF WAY SUPERVISOR-Christopher Irwin MD MD cha Dibbern, Lauren, RN RN ld1 Katharina Grigsby RN RN jj7
[2022-05-24] MEDS ORDERED: KETOROLAC 30 MG/ML INJ ONE (10:03)
[2022-05-24 10:53] VITALS: TEMP 97.8
[2022-05-24 10:55] VITALS: BP 127/91; O2SAT 99
== END 2022-05-24 10:48 | disposition home or self-care (01) ==
LOC: ER 06:52
DX: R10.12 Left upper quadrant pain (principal)
CPT/HCPCS: 36415; 71250; 74177; 80053; 83690; 85025; 86308; 96374; 99284; Q9967

== ENCOUNTER 2022-09-14 15:16 | Emergency (ER) | payer SELFPAY ==
--- OUTSIDE RECORDS SUMMARY | 2022-09-14 15:20 | XMS REPORT | Continuity of Care Document ---
:2000 Author Organization [facility] t Address [address] [place] [address] [place] [id number] Care Team Providers Name Role Phone Pcp, Patient Does Not Have A Primary Care Physician [phone] Phu Hair DO Attending Clinician KIA GILMAN Attending Clinician Unavailable Kia Diez Attending Clinician Problems This patient has no known problems. Allergies, Adverse Reactions, Alerts Allergy Allergy Status Severity Reaction(s) Onset Inactive Treating Comm ents Source Name Type Date Date Clinician NO KNOWN Drug Active Univers ALLERGIE Class ity of S [facility] Social History Social Habit Start Date Stop Date Quantity Comments Source Exposure to Not sure [facility] SARS-CoV-2 (event) [facility] Gender identity [facility] Sexual orientation [facility] History of Social 2022-09-10 2022-09-10 [facility] function 00:00:00 00:00:00 Sex Ass[birth year] [facility] 00:00:00 00:00:00 Smoking Status Start Date Stop Date Source Tobacco smoking consumption unknown [facility] Medications Ordered Filled Start Stop Current Ordering Indication Dosage Frequency Signature Comments Components Source Medication Medication Date Date Medication? Clinician (SIG) Name Name ondansetron Yes 4mg Q8H Take 1 Meth mayuri ODT 5-01 tablet (4 st (ZOFRAN-ODT 00:00: mg total) H ospita ) 4 MG 00 by mouth l disintegrat every 8 ing tablet (eight) hours as needed for nausea or vomiting for up to 10 doses. hydrocortis 2022- Yes Q.5D Insert Met hodi one 09-[address] (PROCTOCORT 00:00: 04:59 rectum 2 H ospita ) 1 % cream 00 :00 (two) l with times a perineal day for 30 applicator days. polyethylen 2022- Yes 17g QD Take 17 g Methodi e glycol 09-[address] (MIRALAX) 00:00: 04:59 daily for Ho spita 17 gram 00 :00 30 days. l packet docusate 2022- Yes 100mg Q12H Take 1 Metho di sodium 09-[address] (COLACE) 00:00: 04:59 (100 mg Hospi ta 100 MG 00 :00 total) by l capsule mouth every 12 (twelve) hours for 30 days. ondansetron 2020-05- No 4mg 4 mg, Univ ers (ZOFRAN-ODT 05-21 Oral, ity of ) 04:45: 03:59 ONCE, 1 [place] disintegrat 00 :00 dose, On Medi sujey ing tablet Mon Branch 4 mg 03/20/21 at 2245, Routine ondansetron 2020-05 Yes [id number] 4mg Take 1 Univers (ZOFRAN 1-08 tablet by ity of ODT) 4 mg 00:00: mouth [place] disintegrat 00 every 8 Medic al ing tablet (eight) Branch hours as needed for Nausea and Vomiting (N/V). Vital Signs Vital Name Observation Time Observation Value Comments Source Systolic blood 2021-03-21 01:34:00 168 mm[facility]Hg[facility] Diastolic blood 2021-03-21 01:34:00 98 mm[Hg] [facility] Heart rate 2021-03-21 01:33:00 94 /min [facility] Body temperature 2021-03-21 01:33:00 36.78 Kailey [facility] Respiratory rate 2021-03-21 01:33:00 20 /min [facility] Body weight 2021-03-21 01:33:00 81.647 kg [facility] Oxygen saturation in 2021-03-21 01:33:00 100 /min [facility] Arterial blood by [facility] Pulse oximetry Branch Systolic blood 2022-09-10 15:46:18 132 mm[Hg] [facility] pressure Diastolic blood 2022-09-10 15:46:18 83 mm[Hg] [facility] pressure Heart rate 2022-09-10 15:46:18 73 /min [facility] Body temperature 2022-09-10 15:46:18 36.67 Kailey [facility] Respiratory rate 2022-09-10 15:46:18 18 /min [facility] Oxygen saturation in 2022-09-10 15:46:18 100 /min [facility] Arterial blood by Pulse oximetry Body height 2022-09-10 15:43:00 180.3 cm [facility] Body weight 2022-09-10 15:43:00 72.576 kg [facility] BMI 2022-09-10 15:43:00 22.32 kg/m2 [facility] Procedures Procedure Date / Time Performing Clinician Source Performed CBC WITH PLATELET AND 2022-09-10 16:47:00 Dianne Maharaj [facility] DIFFERENTIAL [place] PROTHROMBIN TIME WITH INR 2022-09-10 16:47:[address] [facility] [place] PARTIAL THROMBOPLASTIN 2022-09-10 16:47:00 Dianne Maharaj [facility] TIME (PTT) [place] COMPREHENSIVE METABOLIC 2022-09-10 16:47:00 [facility] PANEL [place] LIPASE LEVEL 2022-09-10 16:47:00 Dianne Maharaj spital [place] ESTIMATED GFR 2022-09-10 16:47:00 Dianne Maharaj spital [place] ASSIGNMENT OF BENEFITS 2021-03-21 02:13:57 Doctor Unassigned, [facility] [place] [facility] NOTICE OF PRIVACY 2021-03-21 02:13:40 Doctor Unassigned, [facility] PRACTICES [place] [facility] CONSENT/REFUSAL FOR 2021-03-21 02:13:25 Doctor Unassigned, [facility] DIAGNOSIS AND TREATMENT [place] [facility] LIPASE 2021-03-21 02:05:00 Kia Gilman [facility] COMP. METABOLIC PANEL 2021-03-21 02:05:00 Kia Gilman [facility] ([id number]) [facility] CBC WITH DIFF 2021-03-21 02:05:00 Kia Gilman [facility] URINALYSIS 2021-03-21 02:05:00 Kia Gilman [facility] Encounters Start End Encounter Admission Attending Care Care Encounter Source Date/Time Date/Time Type Type Clinicians Facility Department ID 2022-09-10 2022-09-10 Emergency [facility], 1.2.840.1 [id number] Methodi 10:44:00 12:52:[address] 3.430.2.7 Hospit a [id number] l .8 2022-09-10 2022-09-10 Emergency [facility] [id number] [place] 00:00:00 00:00:00 PHU Braden [facility] i st 2022-09-10 2022-09-10 Travel 1.2.840.1 [id number] Methodi 00:00:00 00:00:[address] 3.430.2.7 0.2.7.3.698 Ho spita .[id number] 084.8 l .8 2021-03-20 2021-03-20 Emergency [facility] ERT [id number] Univers 19:35:00 22:33:[address] [facility] [place] [place] 2021-03-20 2021-03-20 Emergency [facility] [id number] Univers 19:35:00 22:33:00 Kia HOLLOWAY 350.1.13.10 i ty [facility] 4.2.7.2.686 [facility] [id number] [facility] 084 [place] Results Test Description Test Time Test Comments Results Result Comments Source COMP. METABOLIC PANEL (61804) 2021-03-21 02:32:53 Test Item Value Reference Range Interpretation Comme nts NA (test code = 9433682454) 139 mmol/L 135-145 K (test code = 9681871948) 4.2 mmol/L 3.5-5.0 CL (test code = 4251340558) 99 mmol/L 98-108 CO2 TOTAL (test code = 9282857379) 30 mmol/L 23-31 AGAP (test code = 5751036347) 2-16 BUN (test code = 3051386344) 3 mg/dL 7-23 L GLUCOSE (test code = 5925944509) 112 mg/dL 70-110 H CREATININE (test code = 0.78 mg/dL 0.60-1.25 4321329884) TOTAL BILI (test code = 0.6 mg/dL 0.1-1.4 2366451141) CALCIUM (test code = 9721699196) 9.8 mg/dL 8.6-10.6 T PROTEIN (test code = 7948274307) 7.4 g/dL 6.3-8.2 ALBUMIN (test code = 2009530973) 4.6 g/dL 3.5-5.0 ALK PHOS (test code = 2769519760) 100 U/L 34-122 ALTv (test code = 1742-6) 39 U/L 5-50 AST(SGOT) (test code = 9563500234) 40 U/L 13-40 eGFR (test code = 7085760549) mL/min/1.73m2 ZACKARY (test code = ZACKARY) Association [...] tests). Lab Interpretation (test code = Abnormal 22165-4) [facility] Test Item Value Reference Range Interpretation Comments LIPASE (test code = 1274136243) 80 U/L 0-220 Lab Interpretation (test code = Normal 95584-4) [facility] WITH [id number] 02:17:55 Test Item Value Reference Range Interpretation Comments WBC (test code = See_Comment [Automated 8190-2) message] The sy stem which generated this result transmitted reference range : 4.20 - 10.70 10*3/?L. The reference range was not used to interpret this result as normal/abnormal . RBC (test code = See_Comment [Automated 269-8) message] The sy stem which generated this [...] RDW-SD (test code = 39.8 fL 38.5-51.6 68550-9) RDW-CV (test code = 12.2 % 12.1-15.4 788-0) PLT (test code = See_Comment [Automated 777-3) message] The sy stem which generated this result transmitted reference range : 150 - 328 10*3/ ?L. The reference r abner was not used to interpret this result as normal/abnormal . MPV (test code = 10.5 fL 9.8-13.0 33151-6) NRBC/100 WBC (test See_Comment [Automat ed code = 6161698669) message] The system which generated this result transmitted reference range : 0.0 - 10.0 /100 WBCs. The refer ence range was not u sed to interpret th is result as normal/abnormal . NRBC x10^3 (test code <0.01 See_Comment [Auto mated = 7239764520) message] The s ystem which generated this result transmitted reference range : 10*3/?L. The reference range was not used to interpret this result as normal/abnormal . GRAN MAT (NEUT) % 60.5 % (test code = 770-8) IMM GRAN % (test code 0.90 % = 2812456321) LYMPH % (test code = 24.2 % 736-9) MONO % (test code = 9.0 % 5905-5) EOS % (test code = 4.4 % 713-8) BASO % (test code = 1.0 % 706-2) GRAN MAT x10^3(ANC) 6.46 10*3/uL 1.99-6.95 (test code = 3375167850) IMM GRAN x10^3 (test 0.10 10*3/uL 0.00-0.06 H code = 4225787199) LYMPH x10^3 (test code 2.59 10*3/uL 1.09-3.23 = 731-0) MONO x10^3 (test code 0.96 10*3/uL 0.36-1.02 = 742-7) EOS x10^3 (test code = 0.47 10*3/uL 0.06-0.53 711-2) BASO x10^3 (test code 0.11 10*3/uL 0.01-0.09 H = 704-7) Lab Interpretation Abnormal (test code = 64981-7) [facility]"
[2022-09-14] MEDS ORDERED: ONDANSETRON 4 MG/2 ML VIAL ONE (16:27)
[2022-09-14] MEDS ORDERED: FAMOTIDINE 20 MG/2 ML VIAL IV ONE (16:28)
[2022-09-14] MEDS ORDERED: NA CHLORIDE 0.9% 2,000 ML ONE (16:28)
[2022-09-14 16:43] LABS: Absolute Lymphocytes (CBC) 1.4 K/uL (0.7-4.9); Hematocrit 47.3 % (39.6-49.0); Lymphocytes % 11.7 % (15.3-44.8); MCV 87.6 fL (80-100); MPV 9.1 fL (7.6-11.3)
[2022-09-14 16:49] LABS: Specific Gravity > 1.030 (1.005-1.030); Urine Bacteria 20-50 /HPF (<20); Urine Bilirubin NEGATIVE (Negative); Urine Blood Negative (Negative); Urine Clarity Clear (Clear); Urine Color Dark-Yellow (Yellow); Urine Crystals Unidentified Few /HPF (None Seen); Urine Glucose NEGATIVE (Negative); Urine Mucus 4+ /HPF (None Seen); Urine Protein 2+ (Negative); Urine RBC <5 /HPF (None Seen); Urine Urobilinogen 1+ (Normal)
[2022-09-14 17:01] LABS: Magnesium 2.6 mg/dL (1.6-2.4); Potassium 3.3 mEq/L (3.5-5.1); Troponin High Sensitivity 5.8 pg/mL (<58.9)
[2022-09-14] MEDS ORDERED: CEFTRIAXONE 1000 MG/VIAL ONE (17:26)
[2022-09-14] MEDS ORDERED: NA CHLORIDE 0.9% 50 ML ONE (17:26)
--- NOTE | 2022-09-14 18:38 | RAD REPORT ---
EXAM DESCRIPTION: CTAbdomen Pelvis W Contrast - 09/14/2022 6:17 pm CLINICAL HISTORY: ABD PAIN COMPARISON: Abdomen Pelvis W Contrast dated 05/24/2022; Abdomen Pelvis W Contrast dated 05/16/2022 TECHNIQUE: CT of the abdomen and pelvis was performed. All CT scans are performed using dose optimization technique as appropriate and may include automated exposure control or mA/KV adjustment according to patient size. FINDINGS: Lower chest: No acute abnormality. Liver: Hepatic steatosis Biliary: No biliary ductal dilatation. Stomach: No significant focal abnormality. Duodenum: No significant focal abnormality. Pancreas: No significant abnormality. Spleen: No significant abnormality. Adrenal: No suspicious lesions. Kidney/ureter: No hydronephrosis. No renal calculi. Retroperitoneum: No retroperitoneal adenopathy. Vascular: No aneurysm. Bowel: No significant focal abnormality. Peritoneum: No ascites or free air. Bladder: Grossly unremarkable. Reproductive: No adnexal masses. Bones: No acute fracture. Other: n/a IMPRESSION: No acute intra-abdominal or pelvic finding.
--- NOTE | 2022-09-14 19:03 | EDPHYS ---
Physician Documentation [facility] Name: Manny Rapp Age: 22 yrs Sex: Male : 2000 Arrival Date: 09/14/2022 Time: 15:16 Bed 18 Private MD: ED Physician Christopher Hankins HPI: 09/14 16:25 This 22 yrs old Male presents to ER via Ambulatory with complaints of General cp Weakness, Nausea/Vomiting. 16:25 The patient presents to the emergency department with nausea, with "dry heaves", cp vomiting, that is continuous, described as bilious, abdominal pain, of the left mid abdomen. Onset: The symptoms/episode began/occurred today, while at work. 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 reports numbness and tingling from neck to hands. Historical: - Allergies: 16:05 No Known Allergies; vg1 - Home Meds: 16:05 Vitamins [Active]; vg1 - PSHx: 16:05 None; vg1 - Immunization history:: Client reports having NOT received the Covid vaccine. - Social history:: Smoking status: Reported history of juuling and/or vaping. ROS: 16:30 Constitutional: Positive for poor PO intake, Negative for body aches, chills, fever. cp 16:30 Cardiovascular: Negative for chest pain, edema, palpitations. cp 16:30 Respiratory: Negative for cough, shortness of breath, wheezing. 16:30 Eyes: Negative for injury, pain, redness, and discharge. cp 16:30 ENT: Negative for drainage from ear(s), ear pain, sore throat, difficulty swallowing, difficulty handling secretions. 16:30 Neck: Negative for pain with movement, pain at rest, stiffness. 16:30 Abdomen/GI: Positive for abdominal pain, nausea and vomiting, Negative for diarrhea, constipation, hematemesis. 16:30 Back: Negative for pain at rest, pain with movement. 16:30 Neuro: Positive for weakness, Negative for altered mental status, dizziness, headache, syncope. 16:30 All other systems are negative. Exam: 16:35 Constitutional: The patient appears in no acute distress, alert, awake, comfortable, cp non-diaphoretic, non-toxic, well developed, well nourished. 16:35 Head/Face: Normocephalic, atraumatic. cp 16:35 Eyes: Periorbital structures: appear normal, Pupils: equal, round, and reactive to cp light and accomodation, Extraocular movements: intact throughout, Conjunctiva: normal, no exudate, no injection, Sclera: no appreciated abnormality, Lids and lashes: appear normal, bilaterally. 16:35 ENT: External ear(s): are unremarkable, Ear canal(s): are normal, clear, TM's: dullness, bilaterally, Nose: is normal, Mouth: is normal, Posterior pharynx: is normal, airway is patent, no erythema, no exudate, Voice: is normal. 16:35 Neck: ROM/movement: is normal, is supple, without pain, no range of motions limitations, no nuchal rigidity. 16:35 Chest/axilla: Inspection: normal, Palpation: is normal, no crepitus, no tenderness. 16:35 Cardiovascular: Rate: tachycardic, Rhythm: regular, Edema: is not appreciated, JVD: is not appreciated. 16:35 Respiratory: the patient does not display signs of respiratory distress, Respirations: normal, no use of accessory muscles, no retractions, labored breathing, is not present, Breath sounds: are clear throughout, no decreased breath sounds, no stridor, no wheezing. 16:35 Abdomen/GI: Inspection: abdomen appears normal, Bowel sounds: active, all quadrants, Palpation: soft, in all quadrants, mild abdominal tenderness, in the left upper quadrant and left lower quadrant, rebound tenderness, is not appreciated. 16:35 Back: pain, is absent, ROM is normal. 16:35 Skin: no rash present. 16:35 Neuro: Orientation: to person, place \\T\\ time. Mentation: is normal, Cerebellar function: is grossly normal, Motor: moves all fours, strength is normal, Sensation: no obvious gross deficits. 17:09 ECG was reviewed by the Attending Physician. cp Vital Signs: 16:02 BP 105 / 74; Pulse 107; Resp 16; Temp 98.9(O); Pulse Ox 98% on R/A; Weight 86.18 kg; vg1 Height 5 ft. 11 in. ; Pain 2/10; 16:43 BP 135 / 84; Pulse 98; Resp 18; Pulse Ox 100% ; mb9 18:11 BP 122 / 85; Pulse 89; Resp 18; Pulse Ox 98% ; mb9 16:02 Body Mass Index 26.50 (86.18 kg, 180.34 cm) vg1 16:02 Pain Scale: Adult vg1 MDM: 16:07 Patient medically screened. cp 19:02 Data reviewed: vital signs, nurses notes, lab test result(s), EKG, radiologic studies, cp CT scan. 19:02 Differential diagnosis: dehydration, electrolyte abnormality, gastritis. Consideration cp of Admission/Observation Escalation of care including admission/observation considered. I considered the following discharge prescriptions or medication management in the emergency department Medications were administered in the Emergency Department. See MAR. Independent interpretation of the following test(s) in the Emergency Department EKG: See my EKG interpretation above. Counseling: I had a detailed discussion with the patient and/or guardian regarding: the historical points, exam findings, and any diagnostic results supporting the discharge/admit diagnosis, lab results, radiology results, to return to the emergency department if symptoms worsen or persist or if there are any questions or concerns that arise at home. Response to treatment: the patient's symptoms have markedly improved after treatment, and as a result, I will discharge patient. 09/14 16:19 Order name: Basic Metabolic Panel; Complete Time: 17:07 09/14 17:07 Interpretation: Normal except: K 3.3; GLUC 107; CRE 1.38; GFR 73; CA 10.2. 09/14 16:19 Order name: CBC with Diff; Complete Time: 17:07 09/14 17:07 Interpretation: Normal except: WBC 12.30; KAYLIN% 81.2; LYM% 11.7; NEUT A 10.0. 09/14 16:19 Order name: Magnesium; Complete Time: 17:07 09/14 17:08 Interpretation: Abnormal: MG 2.6. 09/14 16:19 Order name: Troponin HS; Complete Time: 17:07 09/14 16:19 Order name: Urinalysis W/Microscopic; Complete Time: 17:07 09/14 17:08 Interpretation: Normal except: Urine SG > 1.030; UKET 2+; UPROT 2+; UUROB 1+; UBACT cp 20-50; UESTR 25; MUCUS 4+; HYAL >20. 09/14 16:19 Order name: CK; Complete Time: 17:07 cp 09/14 17:27 Order name: CT Abd/Pelvis - IV Contrast Only; Complete Time: 18:57 cp 09/14 18:57 Interpretation: Report reviewed. 09/14 16:19 Order name: EKG; Complete Time: 16:20 cp 09/14 16:19 Order name: Cardiac monitoring; Complete Time: 16:23 cp 09/14 16:19 Order name: EKG - Nurse/Tech; Complete Time: 16:41 cp 09/14 16:19 Order name: IV Saline Lock; Complete Time: 16:40 cp 09/14 16:19 Order name: Labs collected and sent; Complete Time: 16:40 cp 09/14 16:19 Order name: O2 Per Protocol; Complete Time: 16:23 cp 09/14 16:19 Order name: O2 Sat Monitoring; Complete Time: 16:23 cp EC:09 Rate is 98 beats/min. Rhythm is regular. NV interval is normal. QRS interval is normal. cp QT interval is normal. T waves are Inverted in leads I, aVL. Interpreted by me. Reviewed by me. Administered Medications: 16:30 Drug: NS 0.9% IV 1000 ml Route: IV; Rate: 1 bolus; Site: right antecubital; mb9 16:30 Drug: NS 0.9% IV 1000 ml Route: IV; Rate: 1 bolus; Site: right antecubital; mb9 16:30 Drug: Ondansetron IVP 4 mg Route: IVP; Site: right antecubital; mb9 17:25 Follow up: Response: No adverse reaction mb9 16:33 Drug: Famotidine IVP 20 mg Route: IVP; Site: right antecubital; mb9 17:25 Follow up: Response: No adverse reaction mb9 17:25 Drug: Rocephin - Rocephin (cefTRIAXone) IVPB 1 grams Route: IVPB; Infused Over: 30 mb9 mins; Site: right antecubital; 19:46 Drug: Potassium PO Effervescent Tablet 50 mEq Route: PO; mb9 Disposition Summary: 09/14/22 19:03 Discharge Ordered Location: Home cp Problem: new cp Symptoms: have improved cp Condition: Stable cp Diagnosis - Heat exhaustion, unspecified cp - Nausea with vomiting, unspecified cp - UTI/ Urinary tract infection, site not specified cp - Abdominal pain, unspecified cp Followup: cp - With: Private Physician - When: 1 - 2 days - Reason: Worsening of condition Discharge Instructions: - Discharge Summary Sheet cp - Abdominal Pain, Adult cp - Nausea and Vomiting, Adult cp - Urinary Tract Infection, Adult cp - Heat Exhaustion cp Forms: - Medication Reconciliation Form cp - Thank You Letter cp - Antibiotic Education cp - Prescription Opioid Use cp Prescriptions: - Zofran 4 mg Oral Tablet - take 1 tablet by ORAL route every 12 hours As needed; 20 tablet; Refills: 0, cp Product Selection Permitted - cefpodoxime 200 mg Oral Tablet - take 1 tablet by ORAL route every 12 hours for 5 days with food; 10 tablet; cp Refills: 0, Product Selection Permitted Signatures: Dispatcher [employer] EDChristopher Perez PA PA cp Garcia, Victoria, RN RN vg1 Lady Trivedi RN RN mb9
--- NOTE | 2022-09-14 19:03 | ER ---
Nurse's Notes [facility] Name: Manny Rapp Age: 22 yrs Sex: Male : 2000 Arrival Date: 09/14/2022 Time: 15:16 Bed 18 Private MD: Diagnosis: Heat exhaustion, unspecified;Nausea with vomiting, unspecified;UTI/ Urinary tract infection, site not specified;Abdominal pain, unspecified Presentation: 09/14 16:02 Chief complaint: Patient states: hx of vomiting every morning, has not been able to vg1 follow up with GI due to insurance; stated today has vomited 4 times today and had a sudden onset of tingling and numbness in ALICE arms and neck. Coronavirus screen: Vaccine status: Patient reports being unvaccinated. Client denies travel out of the [place] in the last 14 days. Ebola Screen: Patient negative for fever greater than or equal to 101.5 degrees Fahrenheit, and additional compatible Ebola Virus Disease symptoms Patient denies exposure to infectious person. Patient denies travel to an Ebola-affected area in the 21 days before illness onset. Initial Sepsis Screen: Does the patient meet any 2 criteria? HR > 90 bpm. Does the patient have a suspected source of infection? No. Patient's initial sepsis screen is negative. Risk Assessment: Do you want to hurt yourself or someone else? Patient reports no desire to harm self or others. Onset of symptoms was September 14, 2022. 16:02 Method Of Arrival: Ambulatory vg1 16:02 Acuity: RADHA 3 vg1 Triage Assessment: 16:05 General: Appears uncomfortable, Behavior is cooperative. Pain: Complains of pain in vg1 epigastric area and left upper quadrant Pain currently is 2 out of 10 on a pain scale. GI: Reports nausea, vomiting. Historical: - Allergies: 16:05 No Known Allergies; vg1 - Home Meds: 16:05 Vitamins [Active]; vg1 - PSHx: 16:05 None; vg1 - Immunization history:: Client reports having NOT received the Covid vaccine. - Social history:: Smoking status: Reported history of juuling and/or vaping. Screenin:13 [facility] ED Fall Risk Assessment (Adult) History of falling in the last 3 months, mb9 including since admission No falls in past 3 months (0 pts) Confusion or Disorientation No (0 pts) Intoxicated or Sedated No (0 pts) Impaired Gait No (0 pts) Mobility Assist Device Used No (0 pt) Altered Elimination No (0 pt) Score/Fall Risk Level 0 - 2 = Low Risk Oriented to surroundings, Maintained a safe environment, Educated pt \T\ family on fall prevention, incl call for assistance when getting out of bed. Abuse screen: Denies threats or abuse. Nutritional screening: No deficits noted. Tuberculosis screening: No symptoms or risk factors identified. Assessment: 16:41 General: Appears uncomfortable, Behavior is cooperative. Pain: Complains of pain in mb9 abdomen Pain radiates to left upper quadrant and epigastric area Pain began 4 months ago Is intermittent. Neuro: Level of Consciousness is awake, alert, obeys commands, Oriented to person, place, time, situation, Appropriate for age Reports paresthesias in chest, right arm, left arm, right leg and left leg. Cardiovascular: Reports nausea, shortness of breath, Heart tones S1 S2 present Patient's skin is warm and dry. Rhythm is regular. GI: Abdomen is round non-distended, Bowel sounds present X 4 quads. Abd is soft and non tender X 4 quads. Reports nausea, vomiting. : Urine is orange. Derm: Skin is pink, warm \T\ dry. Musculoskeletal: Range of motion: intact in all extremities. 18:00 Reassessment: Patient and/or family updated on plan of care and expected duration. Pain mb9 level reassessed. Patient is alert, oriented x 3, equal unlabored respirations, skin warm/dry/pink. Patient states symptoms have improved. 18:11 Reassessment: pt taken to CT via wheelchair. mb9 19:51 Reassessment: Patient and/or family updated on plan of care and expected duration. Pain mb9 level reassessed. Patient is alert, oriented x 3, equal unlabored respirations, skin warm/dry/pink. Patient states feeling better. Patient states symptoms have improved. Vital Signs: 16:02 BP 105 / 74; Pulse 107; Resp 16; Temp 98.9(O); Pulse Ox 98% on R/A; Weight 86.18 kg; vg1 Height 5 ft. 11 in. ; Pain 2/10; 16:43 BP 135 / 84; Pulse 98; Resp 18; Pulse Ox 100% ; mb9 18:11 BP 122 / 85; Pulse 89; Resp 18; Pulse Ox 98% ; mb9 16:02 Body Mass Index 26.50 (86.18 kg, 180.34 cm) vg1 16:02 Pain Scale: Adult vg1 ED Course: 15:18 Patient arrived in ED. ts1 15:20 Christopher Vazquez PA is PHCP. cp 15:20 Christopher Hankins MD is Attending Physician. cp 16:05 Triage completed. vg1 16:05 Arm band placed on. vg1 16:10 Inserted saline lock: 20 gauge in right antecubital area, using aseptic technique. mb9 16:10 EKG done, by ED staff, reviewed by Christopher ZALDIVAR. mb9 16:12 Lady Trivedi RN is Primary Nurse. mb9 16:13 Placed in gown. Bed in low position. Call light in reach. Client placed on continuous mb9 cardiac and pulse oximetry monitoring. NIBP monitoring applied. monitoring tech on. 16:13 No provider procedures requiring assistance completed. mb9 16:40 Basic Metabolic Panel Sent. mb9 16:40 Magnesium Sent. mb9 16:40 Troponin HS Sent. mb9 16:41 CK Sent. mb9 16:41 Urinalysis W/Microscopic Sent. mb9 18:19 CT Abd/Pelvis - IV Contrast Only In Process Unspecified. EDMS 19:51 IV discontinued, intact, bleeding controlled, No redness/swelling at site. Pressure mb9 dressing applied. Administered Medications: 16:30 Drug: NS 0.9% IV 1000 ml Route: IV; Rate: 1 bolus; Site: right antecubital; mb9 16:30 Drug: NS 0.9% IV 1000 ml Route: IV; Rate: 1 bolus; Site: right antecubital; mb9 16:30 Drug: Ondansetron IVP 4 mg Route: IVP; Site: right antecubital; mb9 17:25 Follow up: Response: No adverse reaction mb9 16:33 Drug: Famotidine IVP 20 mg Route: IVP; Site: right antecubital; mb9 17:25 Follow up: Response: No adverse reaction mb9 17:25 Drug: Rocephin - Rocephin (cefTRIAXone) IVPB 1 grams Route: IVPB; Infused Over: 30 mb9 mins; Site: right antecubital; 19:46 Drug: Potassium PO Effervescent Tablet 50 mEq Route: PO; mb9 Medication: 16:12 VIS not applicable for this client. mb9 Outcome: 19:03 Discharge ordered by . fritz 19:51 Discharged to home ambulatory. mb9 19:51 Condition: stable 19:51 Discharge instructions given to patient, Instructed on discharge instructions, Demonstrated understanding of instructions, follow-up care, medications, Prescriptions given X 2. 19:52 Patient left the ED. mb9 Signatures: Dispatcher [employer] EDMS Christopher Vazquez PA PA cp Garcia, Victoria, RN RN vg1 Lady Trivedi RN RN mb9 Kia Engle PAS PAS ts1
[2022-09-14] MEDS ORDERED: POTASSIUM 25 MEQ EFFERV TAB ONE (19:47)
[2022-09-14 19:56] VITALS: TEMP 98.9
[2022-09-14 19:59] VITALS: BP 122/85; O2SAT 98
--- NOTE | 2022-09-15 07:10 | EKG ---
Test Date: 2022-09-14 Test Time: 16:57:04 Deputy County Clerk: ZAFAR MEASUREMENT RESULTS: Intervals: Rate: 98 MO: 134 QRSD: 96 QT: 354 QTc: 451 [place]: P: MO: 134 QRS: 109 T: 135 INTERPRETIVE STATEMENTS: Normal sinus rhythm Lateral infarct, age undetermined Abnormal ECG No previous ECG available for comparison Electronically Signed On 09-15-22 07:09:24 CDT by Yvon Nair
== END 2022-09-14 19:52 | disposition home or self-care (01) ==
LOC: ER 15:16
DX: T67.5XXA Heat exhaustion, unspecified, initial encounter (principal); N39.0 Urinary tract infection, site not specified; R11.2 Nausea with vomiting, unspecified; R10.9 Unspecified abdominal pain
CPT/HCPCS: 36415; 74177; 80048; 81001; 82550; 83735; 84484; 85025; 93005; 96374; 96375; 99285; J0696; J2405; J7030; Q9967

== ENCOUNTER 2023-10-10 16:03 | Emergency (ER) | payer SELFPAY ==
[2023-10-10 19:44] LABS: Hematocrit 43.1 % (39.6-49.0); Hemoglobin 14.5 g/dL (13.6-17.9); MCH 31.4 pg (27.0-35.0); MCHC 33.6 g/dL (32.0-36.0); MCV 93.5 fL (80-100); MPV 9.3 fL (7.6-11.3); Platelets 265 thou/uL (152-406); RBC Red Blood Cell Count 4.61 M/uL (4.33-5.43); Red Cell Distribution Width 13.3 % (12.1-15.2)
[2023-10-10 19:58] LABS: Anion Gap 5.7 mEq/L (5.0-15.0); Magnesium 2.3 mg/dL (1.6-2.4); Potassium 3.7 mEq/L (3.5-5.1)
[2023-10-10] MEDS ORDERED: FUROSEMIDE 20 MG/ 2ML VIAL ONE (20:30)
--- NOTE | 2023-10-10 21:00 | EDPHYS ---
Physician Documentation [facility] Name: Manny Rapp Age: 23 yrs Sex: Male : 2000 Arrival Date: 10/10/2023 Time: 16:03 Bed 9 Private MD: ED Physician Clive Gaviria HPI: 10/09 17:06 This 23 yrs old Male presents to ER via Ambulatory with complaints of Leg sb4 Swelling. 17:06 The patient presents with swelling. The complaints affect the right leg and left leg. sb4 Context: The problem was sustained at an unknown site, resulted from an unknown cause, the patient can fully bear weight, the patient is able to ambulate, Problem is a result from a previous injury: No. Onset: The symptoms/episode began/occurred yesterday. Modifying factors: The symptoms are alleviated by nothing. the symptoms are aggravated by nothing. Associated signs and symptoms: The patient has no apparent associated signs or symptoms. Historical: - Allergies: 17:04 No Known Allergies; db - PMHx: 17:04 None; db - Immunization history:: Adult Immunizations unknown. - Infectious Disease History:: Denies. - Social history:: Smoking status: Patient denies any tobacco usage or history of. ROS: 17:07 Constitutional: Negative for fever, chills, and weight loss, sb4 17:07 MS/extremity: Positive for swelling, per HPI, 17:07 All other systems are negative, Exam: 17:07 Constitutional: This is a well developed, well nourished patient who is awake, alert, sb4 and in no acute distress. Head/Face: Normocephalic, atraumatic. Eyes: Extra-ocular motions intact. Periorbital areas with no swelling, redness, or edema. ENT: Mucous membranes moist. 17:07 Cardiovascular: Edema: 2+ edema to level of left midcalf, left ankle, right midcalf and right ankle, Vital Signs: 17:03 BP 129 / 65; Pulse 77; Resp 18; Temp 98; Pulse Ox 100% ; Weight 86.18 kg; Height 5 ft. db 11 in. ; 21:28 BP 119 / 60; Pulse 69; Resp 18; Temp 98.3; Pulse Ox 100% ; Pain 0/10; kb3 17:03 Body Mass Index 26.50 (86.18 kg, 180.34 cm) db 21:28 Pain Scale: Adult kb3 MDM: 16:48 Patient medically screened. sb4 21:00 Data reviewed: vital signs, nurses notes, lab test result(s), and as a result, I will sb4 discharge patient. Counseling: I had a detailed discussion with the patient and/or guardian regarding the historical points, exam findings, and any diagnostic results supporting the discharge/admit diagnosis, lab results, the need for outpatient follow up, for definitive care, to return to the emergency department if symptoms worsen or persist or if there are any questions or concerns that arise at home. 10/09 17:05 Order name: CBC w/o diff; Complete Time: 19:48 sb4 10/09 17:05 Order name: BMP; Complete Time: 20:00 sb4 10/09 17:05 Order name: Magnesium; Complete Time: 20:00 sb4 10/09 17:05 Order name: IV Start; Complete Time: 19:37 sb4 Administered Medications: 20:35 Drug: Furosemide IVP 20 mg IVP once; give over 2 minutes Route: IVP; Site: left mb9 antecubital; 21:17 Follow up: Response: No adverse reaction kb3 Disposition Summary: 10/10/23 21:00 Discharge Ordered Notes: Location: Home sb4 Problem: new sb4 Symptoms: have improved sb4 Condition: Stable sb4 Diagnosis - Localized edema sb4 Followup: sb4 - With: Private Physician - When: 1 week - Reason: Recheck today's complaints, Re-evaluation by your physician Discharge Instructions: - Discharge Summary Sheet sb4 - Low-Sodium Eating Plan sb4 - Peripheral Edema sb4 Forms: - Work release form sb4 - Patient Portal Instructions sb4 - Leadership Thank You Letter sb4 Addendum: 10/13/2023 19:04 Co-signature as Attending Physician, Clive Gaviria MD I reviewed the patient's care r t provided by the Advanced Practice Provider and agree with the diagnosis and treatment plan. Signatures: Dispatcher [employer] Jaylene Real RN RN kb3 Kalani York RN RN Leida Watkins, PANiravC PANiravC sb4 Lady Trivedi RN RN mb9 Clive Gaviria MD MD rt Corrections: (The following items were deleted from the chart) 10/09 17: 17:06 CBC without Diff+H.LAB.BRZ ordered. EDMS EDMS 17: 17:06 BASIC METABOLIC PANEL+C.LAB.BRZ ordered. EDMS EDMS : 17:06 MAGNESIUM+C.LAB.BRZ ordered. EDMS EDMS
--- NOTE | 2023-10-10 21:00 | ER ---
Nurse's Notes [facility] Name: Manny Rapp Age: 23 yrs Sex: Male : 2000 Arrival Date: 10/10/2023 Time: 16:03 Bed 9 Private MD: Diagnosis: Localized edema Presentation: 10/09 17:03 Chief complaint: Patient states: BILATERAL LEG SWELLING X 2 DAYS. DENIES PAIN. STATES db "FEELS SWELLING". NO REDNESS NOTED. Coronavirus screen: Client denies travel out of the [place] in the last 14 days. At this time, the client does not indicate any symptoms associated with coronavirus-19. Ebola Screen: Patient negative for fever greater than or equal to 101.5 degrees Fahrenheit, and additional compatible Ebola Virus Disease symptoms Patient denies exposure to infectious person. Patient denies travel to an Ebola-affected area in the 21 days before illness onset. No symptoms or risks identified at this time. Initial Sepsis Screen: Does the patient meet any 2 criteria? No. Patient's initial sepsis screen is negative. Does the patient have a suspected source of infection? No. Patient's initial sepsis screen is negative. Risk Assessment: Do you want to hurt yourself or someone else? Patient reports no desire to harm self or others. Onset of symptoms was October 10, 2023. 17:03 Method Of Arrival: Ambulatory db 17:03 Acuity: RADHA 3 db Triage Assessment: 17:03 General: Appears in no apparent distress. comfortable, Behavior is calm, cooperative. db Pain: Denies pain. Historical: - Allergies: 17:04 No Known Allergies; db - PMHx: 17:04 None; db - Immunization history:: Adult Immunizations unknown. - Infectious Disease History:: Denies. - Social history:: Smoking status: Patient denies any tobacco usage or history of. Screenin:28 [facility] ED Fall Risk Assessment (Adult) History of falling in the last 3 months, kb3 including since admission No falls in past 3 months (0 pts) Confusion or Disorientation No (0 pts) Intoxicated or Sedated No (0 pts) Impaired Gait No (0 pts) Mobility Assist Device Used No (0 pt) Altered Elimination No (0 pt) Score/Fall Risk Level 0 - 2 = Low Risk Oriented to surroundings. Abuse screen: Denies threats or abuse. Denies injuries from another. Nutritional screening: No deficits noted. Tuberculosis screening: No symptoms or risk factors identified. Assessment: 19:35 Reassessment: Patient appears in no apparent distress at this time. Patient is alert, nj1 oriented x 3, equal unlabored respirations, skin warm/dry/pink. 20:35 General: Appears. Neuro: Level of Consciousness is awake, alert, obeys commands, mb9 Oriented to person, place, time, situation, Appropriate for age. Cardiovascular: Patient's skin is warm and dry. Respiratory: Airway is patent Respiratory effort is even, unlabored, Respiratory pattern is regular, symmetrical. GI: No signs and/or symptoms were reported involving the gastrointestinal system. : No signs and/or symptoms were reported regarding the genitourinary system. Derm: Skin is pink, warm \\T\\ dry. Musculoskeletal: Range of motion: intact in all extremities. Vital Signs: 17:03 BP 129 / 65; Pulse 77; Resp 18; Temp 98; Pulse Ox 100% ; Weight 86.18 kg; Height 5 ft. db 11 in. ; 21:28 BP 119 / 60; Pulse 69; Resp 18; Temp 98.3; Pulse Ox 100% ; Pain 0/10; kb3 17:03 Body Mass Index 26.50 (86.18 kg, 180.34 cm) db 21:28 Pain Scale: Adult kb3 ED Course: 16:05 Patient arrived in ED. mg5 16:09 [facility]ello [facility]. sb4 16:09 Clive Gaviria MD is Attending Physician. sb4 17:04 Triage completed. db 17:04 Arm band placed on left wrist. db 19:35 Inserted saline lock: 20 gauge in left antecubital area, using aseptic technique. Blood nj1 collected. 19:37 Magnesium Sent. nj1 19:37 BMP Sent. nj1 19:37 CBC w/o diff Sent. nj1 20:35 Lady Trivedi RN is Primary Nurse. mb9 21:28 Patient has correct armband on for positive identification. Provided Education on: kb3 Follow up, low sodium diet. 21:28 No provider procedures requiring assistance completed. Patient did not have IV access kb3 during this emergency room visit. Administered Medications: 20:35 Drug: Furosemide IVP 20 mg IVP once; give over 2 minutes Route: IVP; Site: left mb9 antecubital; 21:17 Follow up: Response: No adverse reaction kb3 Medication: 21:28 VIS not applicable for this client. kb3 Outcome: 21:00 Discharge ordered by . sb4 21:28 Discharged to home ambulatory, kb3 21:28 Condition: stable 21:28 Discharge instructions given to patient, family, Instructed on discharge instructions, follow up and referral plans. low sodium diet Demonstrated understanding of instructions, follow-up care, 21:30 Patient left the ED. kb3 Signatures: Jaylene Carr, RN RN kb3 Kalani York, RN RN Leida Watkins, PA-C PA-C sb4 Lady Trivedi, RN RN mb9 Catalina Mercado RN RN nj1 Alexandra Lou mg5 Corrections: (The following items were deleted from the chart) 17:04 17:03 Pulse 77bpm; Resp 18bpm; Pulse Ox 100%; Temp 98F; 86.18 kg; Height 5 ft. 11 in.; db BMI: 26.5; db
[2023-10-10 22:44] VITALS: BP 119/60; TEMP 98.3; O2SAT 100
== END 2023-10-10 21:30 | disposition home or self-care (01) ==
LOC: ER 16:03
DX: R60.0 Localized edema (principal)
CPT/HCPCS: 36415; 80048; 83735; 85027; 96374; 99284; J1940

== ENCOUNTER 2024-07-27 22:00 | Emergency (ER) | payer SELFPAY ==
[2024-07-27 22:45] LABS: Specific Gravity > 1.030 (1.005-1.030); Sqamous Epithelial <5 /HPF (None Seen); Urine Bacteria <20 /HPF (<20); Urine Bilirubin 1+ (Negative); Urine Blood Trace (Negative); Urine Clarity Clear (Clear); Urine Color Yellow (Yellow); Urine Culture Reflex Order NOT NEEDED; Urine Glucose NEGATIVE (Negative); Urine Ketones TRACE (Negative); Urine Micro Reflex YN NO BILL MICROSCOPIC; Urine Mucus 4+ /HPF (None Seen); Urine Nitrite NEGATIVE (Negative); Urine Protein 1+ (Negative); Urine RBC <5 /HPF (None Seen); Urine Urobilinogen 2+ (Normal); Urine WBC <5 /HPF (<5); Urine Yeast (Budding) Trace /HPF (None Seen)
[2024-07-27] MEDS ORDERED: KETOROLAC 30 MG/ML INJ ONE (23:42)
--- NOTE | 2024-07-28 02:42 | RAD REPORT ---
EXAM: CT Abdomen and Pelvis Without Intravenous Contrast CLINICAL HISTORY: The patient is 24 years old and is Male; right testicle/low back pain TECHNIQUE: Axial computed tomography images of the abdomen and pelvis without intravenous contrast. Sagittal and coronal reformatted images were created and reviewed. This CT exam was performed using one or more of the following dose reduction techniques: automated exposure control, adjustment of the m A and/or kV according to patient size, and/or use of iterative reconstruction technique. COMPARISON: CT September 14, 2022 FINDINGS: LUNG BASES: Unremarkable. No mass. No consolidation. ABDOMEN: LIVER: The liver is enlarged and fatty. GALLBLADDER AND BILE DUCTS: The gallbladder is contracted. No calcified gallstones or ductal dila tation is seen. PANCREAS: Unremarkable. No ductal dilation. SPLEEN: Unremarkable. ADRENALS: Unremarkable. No mass. KIDNEYS AND URETERS: No obstructing stones. No hydronephrosis. No perinephric fluid. STOMACH AND BOWEL: The stomach is moderately distended with food contents. The small bowel is nor mal in caliber. Stool is present throughout the colon. There is no mucosal thickening or evidence of obstruction. PELVIS: APPENDIX: The appendix is normal in caliber without surrounding inflammation. BLADDER: The bladder is incompletely distended. No stones. REPRODUCTIVE: Unremarkable as visualized. ABDOMEN and PELVIS: INTRAPERITONEAL SPACE: Unremarkable. No free air. No significant fluid collection. BONES/JOINTS: No acute fracture. SOFT TISSUES: A fat-containing right inguinal hernia is present. A tiny fat-containing umbilica l hernia is present. VASCULATURE: Unremarkable. No abdominal aortic aneurysm. LYMPH NODES: Unremarkable. No enlarged lymph nodes. IMPRESSION: No acute findings on this contrasted CT of the abdomen and pelvis to explain the patient's symptoms . Electronically signed by: Meagan Ribera MD 07/28/2024 02:35 AM CDT Due to temporary technical issues with the PACS/[employer] reporting system, reports are being chrissy d by the in-house radiologist without review as a courtesy to ensure prompt reporting the interpreting radiologist is fully responsible for the content of the report. Transcribed Date/Time: 07/28/2024 2:41 AM
[2024-07-28] MEDS ORDERED: WATER FOR INJ,STERILE 10 ML ONE (02:50)
--- NOTE | 2024-07-28 02:50 | ER ---
Nurse's Notes [facility] Name: Manny Rapp Age: 24 yrs Sex: Male : 2000 Arrival Date: 07/27/2024 Time: 22:00 Bed 24 Private MD: Diagnosis: Right testicular pain Presentation: 07/27 22:16 Chief complaint: Patient states: I was picking up this really heavy hose and I got a bm8 sudden intense groiin pain and now its hard to walk and my teste hurts. Coronavirus screen: At this time, the client does not indicate any symptoms associated with coronavirus-19. Ebola Screen: Patient negative for fever greater than or equal to 101.5 degrees Fahrenheit, and additional compatible Ebola Virus Disease symptoms Patient denies exposure to infectious person. Patient denies travel to an Ebola-affected area in the 21 days before illness onset. No symptoms or risks identified at this time. Initial Sepsis Screen: Does the patient meet any 2 criteria? No. Patient's initial sepsis screen is negative. Does the patient have a suspected source of infection? No. Patient's initial sepsis screen is negative. Risk Assessment: Do you want to hurt yourself or someone else? Patient reports no desire to harm self or others. Onset of symptoms was July 26, 2024. 22:16 Method Of Arrival: Ambulatory bm8 22:16 Acuity: RADHA 3 bm8 Triage Assessment: 22:17 General: Appears in no apparent distress. comfortable, Behavior is calm, cooperative, bm8 appropriate for age. Pain: Denies pain. Pain currently is 6 out of 10 on a pain scale. EENT: No deficits noted. No signs and/or symptoms were reported regarding the EENT system. Neuro: No deficits noted. Level of Consciousness is awake, alert, obeys commands, Oriented to person, place, time, situation, Appropriate for age. Cardiovascular: No deficits noted. : Reports Scrotal pain: sudden onset. Historical: - Allergies: 22:17 No Known Allergies; bm8 - Home Meds: 22:17 vitamins [Active]; bm8 - PMHx: 22:17 None; bm8 - PSHx: 22:17 None; bm8 - Immunization history:: Adult Immunizations up to date. - Infectious Disease History:: Denies. - Social history:: Smoking status: Reported history of juuling and/or vaping. Screenin/18 02:33 [facility] ED Fall Risk Assessment (Adult) History of falling in the last 3 months, jb4 including since admission No falls in past 3 months (0 pts) Confusion or Disorientation No (0 pts) Intoxicated or Sedated No (0 pts) Impaired Gait No (0 pts) Mobility Assist Device Used No (0 pt) Altered Elimination No (0 pt) Score/Fall Risk Level 0 - 2 = Low Risk Oriented to surroundings, Maintained a safe environment. Abuse screen: Denies threats or abuse. Nutritional screening: No deficits noted. Tuberculosis screening: No symptoms or risk factors identified. Assessment: 07/27 23:47 Reassessment: Patient appears in no apparent distress at this time. Patient and/or jb4 family updated on plan of care and expected duration. Pain level reassessed. Patient is alert, oriented x 3, equal unlabored respirations, skin warm/dry/pink. 07/28 01:10 Reassessment: Patient appears in no apparent distress at this time. Patient and/or jb4 family updated on plan of care and expected duration. Pain level reassessed. Patient is alert, oriented x 3, equal unlabored respirations, skin warm/dry/pink. 02:33 Reassessment: Patient appears in no apparent distress at this time. Patient and/or jb4 family updated on plan of care and expected duration. Pain level reassessed. Patient is alert, oriented x 3, equal unlabored respirations, skin warm/dry/pink. 03:19 Reassessment: Patient appears in no apparent distress at this time. No changes from bm8 previously documented assessment. Patient and/or family updated on plan of care and expected duration. Pain level reassessed. Patient is alert, oriented x 3, equal unlabored respirations, skin warm/dry/pink. Patient denies pain at this time. Patient states feeling better. Patient states symptoms have improved. Vital Signs: 07/27 22:16 BP 140 / 13; Pulse 110; Resp 20; Temp 98.4; Pulse Ox 99% ; Weight 102.06 kg; Height 5 bm8 ft. 11 in. ; Pain 6/10; 23:47 BP 109 / 52; Pulse 87; Resp 16; Pulse Ox 99% ; jb4 07/28 01:10 BP 127 / 81; Pulse 81; Resp 16; Pulse Ox 98% on R/A; jb4 02:33 BP 144 / 107; Pulse 66; Resp 16; Pulse Ox 98% on R/A; jb4 03:19 BP 138 / ???; Pulse 95; Resp 20; Temp 98.4; Pulse Ox 98% ; Pain 0/10; bm8 07/27 22:16 Body Mass Index 31.38 (102.06 kg, 180.34 cm) bm8 07/27 22:16 Pain Scale: Adult bm8 03:19 Pain Scale: Adult bm8 [place] Coma Score: 03:19 Eye Response: spontaneous(4). Motor Response: obeys commands(6). Verbal Response: bm8 oriented(5). Total: 15. ED Course: 07/27 22:05 Patient arrived in ED. gm2 22:06 Christopher Vazquez PA is PHCP. cp 22:06 Saw Taylor MD is Attending Physician. cp 22:17 Triage completed. bm8 22:18 Arm band placed on right wrist. bm8 22:35 Urinalysis W/Microscopic Sent. jb4 22:45 Patient has correct armband on for positive identification. Bed in low position. Call jb4 light in reach. Side rails up X 1. Provided Education on: plan of care. 23:10 CT Stone Protocol In Process Unspecified. EDMS 23:47 Carlos Alberto Rooney, RN is Primary Nurse. jb4 07/28 02:01 US Scrotum Testicles In Process Unspecified. EDMS 02:34 No provider procedures requiring assistance completed. jb4 02:49 Chet Joy MD is Referral Physician. cp 03:19 Patient did not have IV access during this emergency room visit. bm8 Administered Medications: 07/27 23:47 Drug: Ketorolac IM 30 mg IM once Route: IM; Site: right deltoid; jb4 07/28 02:33 Follow up: Response: No adverse reaction; Marked relief of symptoms jb4 03:01 Drug: Rocephin (cefTRIAXone) IM 250 mg IM once Route: IM; Site: left deltoid; jb4 03:20 Follow up: Response: No adverse reaction bm8 03:01 Drug: AZITHromycin PO 1 grams PO once Route: PO; jb4 03:20 Follow up: Response: No adverse reaction bm8 Medication: 03:19 VIS not applicable for this client. bm8 Outcome: 02:50 Discharge ordered by . cp 03:19 Discharged to home ambulatory, bm8 03:19 Condition: stable 03:19 Discharge instructions given to patient, family, Instructed on discharge instructions, follow up and referral plans. no drinking with medication, no driving heavy equipment, medication usage, safety practices, Demonstrated understanding of instructions, follow-up care, medications, 03:21 Prescriptions given X 1, bm8 03:21 Patient left the ED. bm8 Signatures: Dispatcher [employer] EDMS Christopher Vazquez PA PA Carlos Alberto Her, RN RN jb4 Niki Wynn gm2 Driss Richardson, RN RN bm8 Corrections: (The following items were deleted from the chart) 03 22:18 22:17 PMHx: Unable to Obtain; bm8 bm8
--- NOTE | 2024-07-28 02:51 | EDPHYS ---
Physician Documentation [facility] Name: Manny Rapp Age: 24 yrs Sex: Male : 2000 Arrival Date: 07/27/2024 Time: 22:00 Bed 24 Private MD: ED Physician Saw Taylor HPI: 07/27 22:25 This 24 yrs old Male presents to ER via Ambulatory with complaints of cp Testicular Pain. 22:25 The patient presents with right groin and right testicle pain. cp 22:25 Onset: The symptoms/episode began/occurred couple days ago. Reports pain started after cp picking up heavy hose, pain improved, returned today after lifting heavy object. denies penile pain, penile discharge. 22:25 Associated signs and symptoms: Pertinent positives: increased right side low back pain, cp Pertinent negatives: abdominal pain, dysuria, fever, hematuria, incontinence, numbness of groin area. Historical: - Allergies: 22:17 No Known Allergies; bm8 - Home Meds: 22:17 vitamins [Active]; bm8 - PMHx: 22:17 None; bm8 - PSHx: 22:17 None; bm8 - Immunization history:: Adult Immunizations up to date. - Infectious Disease History:: Denies. - Social history:: Smoking status: Reported history of juuling and/or vaping. ROS: 22:30 Constitutional: Negative for body aches, chills, fever, poor PO intake, cp 22:30 Eyes: Negative for injury, pain, redness, and discharge, cp 22:30 Abdomen/GI: Negative for abdominal pain, nausea, vomiting, and diarrhea, 22:30 Back: Positive for pain at rest, pain with movement, of the right mid back and right low back, 22:30 : Positive for testicular pain of the right testicle, Negative for urinary symptoms, hematuria, difficulty urinating, bladder incontinence, penile discharge, penile pain, 22:30 Skin: Negative for cellulitis, rash, cp 22:30 All other systems are negative, cp Exam: 22:33 Constitutional: The patient appears in no acute distress, alert, awake, non-toxic, well cp developed, well nourished, 22:33 Head/Face: Normocephalic, atraumatic. cp 22:33 Eyes: Periorbital structures: appear normal, Conjunctiva: normal, no exudate, no injection, Sclera: no appreciated abnormality, Lids and lashes: appear normal, bilaterally, 22:33 ENT: External ear(s): are unremarkable, Nose: is normal, Mouth: Lips: moist, Oral mucosa: moist, Posterior pharynx: Airway: no evidence of obstruction, patent, 22:33 Chest/axilla: Inspection: normal, 22:33 Cardiovascular: Rate: tachycardic, Rhythm: regular, 22:33 Respiratory: the patient does not display signs of respiratory distress, Respirations: normal, no use of accessory muscles, no retractions, labored breathing, is not present, Breath sounds: are clear throughout, no decreased breath sounds, no stridor, no wheezing, 22:33 Abdomen/GI: Inspection: abdomen appears normal, Palpation: abdomen is soft and non-tender, in all quadrants, 22:33 Back: pain, of the right mid back and right low back, tenderness, 22:33 : Male external genitalia: tenderness, of the right testicle is noted, that is moderate, no gross hernias palpated, Sexual behavior: the patient is sexually active, 22:33 Skin: cellulitis, is not appreciated, no rash present. Vital Signs: 22:16 BP 140 / 13; Pulse 110; Resp 20; Temp 98.4; Pulse Ox 99% ; Weight 102.06 kg; Height 5 bm8 ft. 11 in. ; Pain 6/10; 23:47 BP 109 / 52; Pulse 87; Resp 16; Pulse Ox 99% ; jb4 0318 01:10 BP 127 / 81; Pulse 81; Resp 16; Pulse Ox 98% on R/A; jb4 02:33 BP 144 / 107; Pulse 66; Resp 16; Pulse Ox 98% on R/A; jb4 03:19 BP 138 / ???; Pulse 95; Resp 20; Temp 98.4; Pulse Ox 98% ; Pain 0/10; bm8 07/27 22:16 Body Mass Index 31.38 (102.06 kg, 180.34 cm) bm8 07/27 22:16 Pain Scale: Adult bm8 03:19 Pain Scale: Adult bm8 [place] Coma Score: 03:19 Eye Response: spontaneous(4). Motor Response: obeys commands(6). Verbal Response: bm8 oriented(5). Total: 15. MDM: 07/27 22:20 Medical Screening Exam initiated cp 07/28 00:00 Differential diagnosis: appendicitis, UTI, prostatitis, urethritis, hernia, orchitis, cp std, epididymitis, kidney stone. 01:47 ED course: us tech reports no torsion noted on ultrasound. cp 02:50 Data reviewed: vital signs, nurses notes, radiologic studies, CT scan, ultrasound, and cp as a result, I will discharge patient. 02:50 I considered the following discharge prescriptions or medication management in the emergency department Medications were administered in the Emergency Department. See MAR. Response to treatment: the patient's symptoms have mildly improved after treatment, and as a result, I will discharge patient. 07/27 22:21 Order name: Urinalysis W/Microscopic; Complete Time: 22:50 cp 07/28 02:12 Interpretation: Normal except: Urine SG > 1.030; UBILI 1+; UKET TRACE; UBLD Trace; cp UPROT 1+; UUROB 2+; MUCUS 4+; BYST Trace. 07/27 22:51 Order name: CT Stone Protocol 07/28 01:20 Order name: US Scrotum Testicles cp Administered Medications: 07/27 23:47 Drug: Ketorolac IM 30 mg IM once Route: IM; Site: right deltoid; jb4 07/28 02:33 Follow up: Response: No adverse reaction; Marked relief of symptoms jb4 03:01 Drug: Rocephin (cefTRIAXone) IM 250 mg IM once Route: IM; Site: left deltoid; jb4 03:20 Follow up: Response: No adverse reaction bm8 03:01 Drug: AZITHromycin PO 1 grams PO once Route: PO; jb4 03:20 Follow up: Response: No adverse reaction bm8 Disposition Summary: 07/28/24 02:50 Discharge Ordered Notes: Location: Home cp Problem: new cp Symptoms: have improved cp Condition: Stable cp Diagnosis - Right testicular pain cp Followup: cp - With: Chet Joy MD - When: 1 week - Reason: pain continues Discharge Instructions: - Discharge Summary Sheet cp - Epididymitis cp - Testicular Self-Exam cp Forms: - Medication Reconciliation Form cp - Antibiotic Education cp - Prescription Opioid Use cp - Patient Portal Instructions cp - Leadership Thank You Letter cp - Work release form lg3 Prescriptions: - Diclofenac Sodium 75 mg Oral Tablet Sustained Release - take 1 tablet ORAL route 2 times per day; 30 tablet; Refills: 0, Product cp Selection Permitted Signatures: Dispatcher [employer] Christopher Monae PA PA cp Bryson, James, RN RN jb4 Driss Richardson RN RN bm8 Corrections: (The following items were deleted from the chart) 07/27 22:18 22:17 PMHx: Unable to Obtain; bm8 bm8
[2024-07-28] MEDS ORDERED: AZITHROMYCIN 250 MG TAB ONE (02:53)
[2024-07-28] MEDS ORDERED: CEFTRIAXONE 250 MG/VIAL ONE (02:54)
[2024-07-28 03:27] VITALS: TEMP 98.4
[2024-07-28 03:29] VITALS: O2SAT 98
[2024-07-28 03:31] VITALS: BP 144/107
--- NOTE | 2024-07-28 04:11 | RAD REPORT ---
PROCEDURE: US Scrotum CLINICAL INDICATION: The patient is 24 years old and is Male; PAIN Bed Name: 24 TECHNIQUE: Real-time ultrasound of the scrotum with color Doppler and image documentation. COMPARISON: 07/27/2024 CT abdomen pelvis FINDINGS: RIGHT TESTICLE: Both testes demonstrate normal internal blood flow and low resistance waveforms, wi thout evidence of torsion. The right testicle measures 3.3 x 4.2 x 2.4 cm. LEFT TESTICLE: The left testicle measures 3.2 x 3.7 x 2.3 cm. EPIDIDYMIDES: Unremarkable SCROTUM: Trace left-sided hydrocele. IMPRESSION: No acute findings in the scrotum. No evidence of torsion. Electronically signed by: Edgard Dean MD 07/28/2024 04:07 AM CDT Due to temporary technical issues with the PACS/Sikluibe reporting system, reports are being signed by the in-house radiologist without review as a courtesy to ensure prompt reporting the interpreting radiologist is fully responsible for the content of the report. Transcribed Date/Time: 07/28/2024 4:11 AM
== END 2024-07-28 03:21 | disposition home or self-care (01) ==
LOC: ER 22:00
DX: N50.811 Right testicular pain (principal)
CPT/HCPCS: 74176; 76377; 76870; 81001; J0696

== ENCOUNTER 2025-02-22 08:17 | Inpatient (IN) | payer SELFPAY ==
[2025-02-22] MEDS ORDERED: ONDANSETRON 4 MG/2 ML VIAL ONE (08:51)
[2025-02-22] MEDS ORDERED: PANTOPRAZOLE 40 MG INJ ONE (08:52)
[2025-02-22] MEDS ORDERED: NA CHLORIDE 0.9% 250 ML ONE (08:52)
[2025-02-22 09:11] LABS: Absolute Lymphocytes (CBC) 1.5 K/uL (0.7-4.9); Hematocrit 44.7 % (39.6-49.0); Hemoglobin 15.4 g/dL (13.6-17.9); MCH 30.8 pg (27.0-35.0); MCHC 34.5 g/dL (32.0-36.0); MCV 89.3 fL (80-100); MPV 8.3 fL (7.6-11.3); Nucleated RBC Absolute Count 0.0 (0-0); Nucleated Red Blood Cells % 0.1 % (0-0); RBC Red Blood Cell Count 5.00 M/uL (4.33-5.43); White Blood Count 8.80 thou/uL (4.3-10.9)
[2025-02-22 09:35] LABS: ALT/SGPT 42 U/L (16-61); Albumin 3.7 g/dL (3.4-5.0); Albumin/Globulin Ratio 0.9 (1.1-1.8); Alkaline Phosphatase 84 U/L (45-117); Anion Gap 7.2 mEq/L (5.0-15.0); BUN Blood Urea Nitrogen 12 mg/dL (7-18); Globulin 4.0 g/dL (2.3-3.5); Glucose Level 96 mg/dL (74-106); Lipase 38 U/L (13-75); Potassium 4.2 mEq/L (3.5-5.1)
[2025-02-22 09:39] LABS: AST/SGOT < 10 U/L (15-37)
--- NOTE | 2025-02-22 09:59 | RAD REPORT ---
EXAM: CTA Abdomen, Pelvis Angio, with and without contrast HISTORY: [facility] MAIN HEMATEMESIS COMPARISON: None TECHNIQUE: Multiple contiguous axial images were obtained a CTA of the abdomen and pelvis, performed before and after IV contrast administration per the department's GI bleeding protocol. Sagittal and coronal 3-D MIP reformats were performed. One or more of the following dose reduction techniques were used: Automated exposure control, adjustment of the mA and kV according to patient size, and iterative reconstruction. Unless otherwise specified, incidental findings do not require dedicated im aging follow-up. FINDINGS: Motion artifact somewhat limits evaluation of the upper abdomen on the arterial phase. LOWER LUNGS: No focal infiltrates or masses. PLEURAL SPACE: No pleural effusion or pneumothorax. LIVER: Unremarkable. KIDNEYS: Unremarkable. SPLEEN: Unremarkable. PANCREAS: Unremarkable. BOWEL: Nonobstructive bowel gas pattern. No suspicious masses. No abnormal contrast extravasation. RETROPERITONEUM: No lymphadenopathy BONES: Degenerative changes in the spine. ABDOMINAL AORTA: Normal caliber without evidence of dissection or aneurysmal dilatation. CELIAC TRUNK: Patent SMA: Patent YUMIKO: Patent RENAL ARTERIES: Bilateral single renal arteries without significant atherosclerotic disease IMPRESSION: No acute findings. No abnormal contrast extravasation or a suspicious lesion to suggest active GI ble eding.
--- NOTE | 2025-02-22 10:55 | ER ---
Nurse's Notes [facility] Name: Manny Rapp Age: 25 yrs Sex: Male : 2000 Arrival Date: 02/22/2025 Time: 08:17 Bed 20 Private MD: Diagnosis: Hematemesis Presentation: 02/22 08:27 Chief complaint: Patient states: started vomiting yesterday , today he vomited and iw there was blood , there were some clots , had some diarrhea yesterday. Coronavirus screen: At this time, the client does not indicate any symptoms associated with coronavirus-19. Ebola Screen: No symptoms or risks identified at this time. Initial Sepsis Screen: Does the patient meet any 2 criteria? No. Patient's initial sepsis screen is negative. Does the patient have a suspected source of infection? No. Patient's initial sepsis screen is negative. Risk Assessment: Do you want to hurt yourself or someone else? Patient reports no desire to harm self or others. Onset of symptoms was February 21, 2025. 08:27 Method Of Arrival: Ambulatory iw 08:27 Acuity: RADHA 3 iw Historical: - Allergies: 08:30 No Known Allergies; iw - Home Meds: 08:30 None [Active]; iw - PMHx: 08:30 None; iw - PSHx: 08:30 None; iw - Immunization history:: Adult Immunizations not up to date. - Infectious Disease History:: Denies. - Social history:: Smoking status: Reported history of juuling and/or vaping. Patient uses alcohol, weekly. - Family history:: not pertinent. - Hospitalizations: : No recent hospitalization is reported. Screenin:23 [facility] ED Fall Risk Assessment (Adult) History of falling in the last 3 months, zm including since admission No falls in past 3 months (0 pts) Confusion or Disorientation No (0 pts) Intoxicated or Sedated No (0 pts) Impaired Gait No (0 pts) Mobility Assist Device Used No (0 pt) Altered Elimination No (0 pt) Score/Fall Risk Level 0 - 2 = Low Risk Oriented to surroundings, Maintained a safe environment, Educated pt \T\ family on fall prevention, incl call for assistance when getting out of bed, Assessed \T\ reinforced patient's understanding of fall precautions, Hourly rounding (assess needs \T\ fall precautionary measures) done, Used ambulatory aids as needed (educated on \T\ assisted with), Used gait belt as appropriate. Abuse screen: Denies threats or abuse. Denies injuries from another. Nutritional screening: No deficits noted. Tuberculosis screening: No symptoms or risk factors identified. Assessment: 08:35 General: Appears in no apparent distress. comfortable, Behavior is calm, cooperative. zm Pain: Denies pain. Neuro: No deficits noted. Level of Consciousness is awake, alert, obeys commands, Oriented to person, place, time, situation. Cardiovascular: No deficits noted. Heart tones S1 S2 present Capillary refill < 3 seconds in bilateral fingers Patient's skin is warm and dry. Respiratory: No deficits noted. Airway is patent Respiratory effort is even, unlabored, Respiratory pattern is regular, symmetrical, Breath sounds are clear bilaterally. in right upper lobe, left upper lobe, left lower lobe and right lower lobe. GI: Abdomen is flat, non-distended, Bowel sounds present X 4 quads. Abd is soft and non tender X 4 quads. Reports vomiting, since 0000 02/22/2025 ETOH use Saturday night 02/19/25. : No signs and/or symptoms were reported regarding the genitourinary system. EENT: Throat is clear Denies difficulty swallowing. Derm: No signs and/or symptoms reported regarding the dermatologic system. Skin is intact, is healthy with good turgor, Skin is pink, warm \T\ dry. Musculoskeletal: No signs and/or symptoms reported regarding the musculoskeletal system. Circulation, motion, and sensation intact. Range of motion: intact in all extremities. 10:35 Reassessment: Patient appears in no apparent distress at this time. No changes from zm previously documented assessment. Patient and/or family updated on plan of care and expected duration. Pain level reassessed. Patient is alert, oriented x 3, equal unlabored respirations, skin warm/dry/pink. Patient denies pain at this time. 12:12 Reassessment: Patient appears in no apparent distress at this time. No changes from zm previously documented assessment. Patient and/or family updated on plan of care and expected duration. Pain level reassessed. Patient is alert, oriented x 3, equal unlabored respirations, skin warm/dry/pink. Patient denies pain at this time. Vital Signs: 08:27 BP 121 / 89; Pulse 75; Resp 16; Pulse Ox 98% on R/A; Weight 97.52 kg; Height 5 ft. 11 iw in. ; Pain 0/10; 10:35 BP 108 / 96; Pulse 56; Resp 17; Temp 98.6; Pulse Ox 99% on R/A; Pain 0/10; zm 12:12 BP 111 / 93; Pulse 61; Resp 16; Pulse Ox 98% on R/A; Pain 0/10; zm 08:27 Body Mass Index 29.99 (97.52 kg, 180.34 cm) iw 08:27 Pain Scale: Adult iw 10:35 Pain Scale: Adult zm 12:12 Pain Scale: Adult zm [place] Coma Score: 10:35 Eye Response: spontaneous(4). Motor Response: obeys commands(6). Verbal Response: zm oriented(5). Total: 15. 12:12 Eye Response: spontaneous(4). Motor Response: obeys commands(6). Verbal Response: zm oriented(5). Total: 15. ED Course: 08:22 Patient arrived in ED. cj3 08:22 Chris Krishnan MD is Attending Physician. rn 08:30 Triage completed. iw 08:30 Arm band placed on. iw 08:35 Patient has correct armband on for positive identification. Placed in gown. Bed in low zm position. Call light in reach. Side rails up X 1. Provided Education on: call light use. Client placed on continuous cardiac and pulse oximetry monitoring. NIBP monitoring applied. Pulse ox on. NIBP on. Door closed. Noise minimized. Lights dimmed. Warm blanket given. Verbal reassurance given. 08:48 Candi Ching, RN is Primary Nurse. zm 09:00 Initial lab(s) drawn, by tn, sent to lab. Inserted saline lock: 18 gauge in right zm antecubital area, using aseptic technique. Blood collected. Flushed with 10 mL NS. 09:04 CBC with Diff Sent. zm 09:04 CMP Sent. zm 09:04 Lipase Sent. zm 09:[address] In Process Unspecified. EDMS 09:10 Pelvis Angio In Process Unspecified. EDMS 09:10 Abdomen In Process Unspecified. EDMS 10:54 Dhruv Krishnan MD is Hospitalizing Provider. rn Administered Medications: 09:03 Drug: Pantoprazole IVP 40 mg IVP once Route: IVP; Site: right antecubital; zm 12:13 Follow up: Response: No adverse reaction zm 09:04 Drug: Ondansetron IVP 4 mg IVP once; over 2 minutes Route: IVP; Site: right antecubital;zm 12:13 Follow up: Response: No adverse reaction zm 09:17 Drug: Pantoprazole IV 8 mg/hr IV at 25 ml/hr continuous; (Standard dilution is 80 mg in zm 250 mL NS) Route: IV; Rate: 25 ml/hr; Site: right antecubital; Medication: 09:25 VIS not applicable for this client. Outcome: 10:54 Decision to Hospitalize by Provider. rn 14:06 Patient left the ED. Signatures: Dispatcher [employer] Marjan Arcos RN RN iw Nieto, Roman, MD MD rn Baxter, Heather, RN RN hb Martinez, Zaina, RN RN zm Johnson, Celeste 3
--- NOTE | 2025-02-22 10:55 | EDPHYS ---
Physician Documentation [facility] Name: Manny Rapp Age: 25 yrs Sex: Male : 2000 Arrival Date: 02/22/2025 Time: 08:17 Bed 20 Private MD: ED Physician Chris Krishnan HPI: 02/22 08:51 This 25 yrs old Male presents to ER via Ambulatory with complaints of Vomiting rn - BLOOD. 08:51 The patient presents to the emergency department with nausea, vomiting. Onset: The rn symptoms/episode began/occurred yesterday. Patient reports hematemesis since yesterday. 2 episodes, mixture of dark clot and red blood. Had blood in emesis the first time he threw up. No abdominal pain. Suffers from bad GERD, does not take medication, states uses baking soda instead. Dark stool as well.. Historical: - Allergies: 08:30 No Known Allergies; iw - Home Meds: 08:30 None [Active]; iw - PMHx: 08:30 None; iw - PSHx: 08:30 None; iw - Immunization history:: Adult Immunizations not up to date. - Infectious Disease History:: Denies. - Social history:: Smoking status: Reported history of juuling and/or vaping. Patient uses alcohol, weekly. - Family history:: not pertinent. - Hospitalizations: : No recent hospitalization is reported. ROS: 08:51 Constitutional: Negative for fever, chills, and weight loss, Cardiovascular: Negative rn for chest pain, palpitations, and edema, Respiratory: Negative for shortness of breath, cough, wheezing, and pleuritic chest pain, Abdomen/GI: Negative for abdominal pain, positive for hematemesis MS/Extremity: Negative for injury and deformity, Neuro: Negative for headache, weakness, numbness, tingling, and seizure, Exam: 08:51 Constitutional: This is a well developed, well nourished patient who is awake, alert, rn and in no acute distress. Cardiovascular: Regular rate and rhythm. No pulse deficits. Respiratory: No increased work of breathing, no retractions or nasal flaring. Abdomen/GI: Soft, non-tender Neuro: Awake and alert, GCS 15 Vital Signs: 08:27 BP 121 / 89; Pulse 75; Resp 16; Pulse Ox 98% on R/A; Weight 97.52 kg; Height 5 ft. 11 iw in. ; Pain 0/10; 10:35 BP 108 / 96; Pulse 56; Resp 17; Temp 98.6; Pulse Ox 99% on R/A; Pain 0/10; zm 12:12 BP 111 / 93; Pulse 61; Resp 16; Pulse Ox 98% on R/A; Pain 0/10; zm 08:27 Body Mass Index 29.99 (97.52 kg, 180.34 cm) iw 08:27 Pain Scale: Adult iw 10:35 Pain Scale: Adult zm 12:12 Pain Scale: Adult zm Marty Coma Score: 10:35 Eye Response: spontaneous(4). Motor Response: obeys commands(6). Verbal Response: zm oriented(5). Total: 15. 12:12 Eye Response: spontaneous(4). Motor Response: obeys commands(6). Verbal Response: zm oriented(5). Total: 15. MDM: 08:22 Medical Screening Exam initiated rn 09:45 ED course: Patient adds that Saturday was drinking heavily. Likely combination of rn alcoholic gastritis and chronic GERD/ulcer.. 09:55 Management of patient was discussed with the following: Ecotherapist: Discussed case with rn Dr. Calderon, will consult on patient once admitted.. 10:53 Differential diagnosis: gastritis, Alcohol gastritis, GERD, gastric ulcers, rn Teetee-Watts tear. Data reviewed: vital signs, nurses notes, lab test result(s), radiologic studies, CT scan, and as a result, I will admit patient. Consideration of Admission/Observation Patient was admitted/placed on observation. Escalation of care including admission/observation considered. Counseling: I had a detailed discussion with the patient and/or guardian regarding the historical points, exam findings, and any diagnostic results supporting the discharge/admit diagnosis, lab results, radiology results, the need for further work-up and treatment in the hospital. Response to treatment: the patient's symptoms have mildly improved after treatment. 10:56 Independent interpretation of the following test(s) in the Emergency Department CT rn Scan: My interpretation is CT abdomen pelvis images negative for acute hemorrhage or pneumoperitoneum per my interpretation. vp data: rate is 56 beats/min, Rhythm is sinus bradycardia, with no ectopy, Interpretation: bradycardia. 02/22 08:35 Order name: CBC with Diff; Complete Time: 09:30 rn 02/22 08:35 Order name: CMP; Complete Time: 09:45 rn 02/22 08:35 Order name: Lipase; Complete Time: 09:45 rn 02/22 12:16 Order name: CBC with Automated Diff EDMS 02/22 12:16 Order name: CBC with Automated Diff EDMS 02/22 12:16 Order name: Comprehensive Metabolic Panel EDMS 02/22 12:16 Order name: Comprehensive Metabolic Panel EDMS 02/22 12:16 Order name: Magnesium EDMS 02/22 12:16 Order name: Magnesium EDMS 02/22 08:35 Order name: Abdomen Angio CT; Complete Time: 10:07 rn 02/22 08:50 Order name: Pelvis Angio; Complete Time: 10:07 EDMS 02/22 08:51 Order name: Abdomen ; Complete Time: 10:07 EDMS 02/22 12:14 Order name: CONS Physician Consult EDMS 02/22 12:16 Order name: Dietitian Consult EDMS 02/22 08:35 Order name: IV Saline Lock; Complete Time: 09:04 rn 02/22 08:35 Order name: Labs collected and sent; Complete Time: 09:04 rn Administered Medications: 09:03 Drug: Pantoprazole IVP 40 mg IVP once Route: IVP; Site: right antecubital; zm 12:13 Follow up: Response: No adverse reaction zm 09:04 Drug: Ondansetron IVP 4 mg IVP once; over 2 minutes Route: IVP; Site: right antecubital;zm 12:13 Follow up: Response: No adverse reaction 09:17 Drug: Pantoprazole IV 8 mg/hr IV at 25 ml/hr continuous; (Standard dilution is 80 mg in zm 250 mL NS) Route: IV; Rate: 25 ml/hr; Site: right antecubital; Disposition Summary: 02/22/25 10:54 Hospitalization Ordered Notes: Hospitalization Status: Observation rn Provider: Dhruv Krishnan rn Location: Telemetry/MedSurg (observation) rn Condition: Stable rn Problem: new rn Symptoms: have improved rn Bed/Room Type: Standard rn Room Assignment: 210(02/22/25 13:06) bd Diagnosis - Hematemesis rn Forms: - Medication Reconciliation Form rn - SBAR form rn - Leadership Thank You Letter rn Signatures: Dispatcher [employer] EDMS Chacha Marshall Irene, Chris Barlow RN, MD MD rn Martinez, Zaina, GIO bowling Corrections: (The following items were deleted from the chart) 08:35 08:35 CBC+H.LAB.BRZ ordered. EDMS EDMS 08:35 08:35 COMPREHENSIVE METABOLIC PANEL+C.LAB.BRZ ordered. EDMS EDMS 08:35 08:35 LIPASE+C.LAB.BRZ ordered. EDMS EDMS 08:35 08:35 Abdomen Angio+CT.RAD.BRZ ordered. EDMS EDMS 13:06 10:54 rn sunshine
[2025-02-22] MEDS ORDERED: ONDANSETRON 4 MG/2 ML VIAL IV PRN (12:12)
--- NOTE | 2025-02-22 12:22 | P.HP ---
Certification for Inpatient Patient admitted to: Observation With expected LOS: <2 Midnights Practitioner: I am a practitioner with admitting privileges, knowledge of patient current condition, hospital course, and medical plan of care. Services: Services provided to patient in accordance with Admission requirements found in Title 42 Section 412.3 of the Code of Federal Regulations Patient History Date of Service: 02/22/25 Reason for admission: hematemesis History of Present Illness: 25yo M, no PMH. Presents to ED due to hematemesis. He reports throwing up yesterday and had blood / blood clots after throwing up yellowish gastric contents. He reports drinking a lot of alcohol on Saturday and a long history of moderate-severe GERD symptoms. He does not take any medications. He woke up this morning and was brushing his teeth as usual when he gagged (as normal) and had a small blood tinged emesis. He reports at the end of vomiting, he had a decent size blood clot. At the time, he also noted a few drops from his nose when bent over the toilet, which he states he typically has when he throws up some times. He does endorse a recent history of his GERD symptoms worsening lately. Home medications list reviewed: Yes - Past Medical/Surgical History Diabetic: No Past Medical History: Patient denies medical history Past Surgical History: Patient denies surgical history - Family History Family History: Reviewed- Non-Contributory - Social History Smoking Status: Current every day smoker (vapes) Alcohol use: Yes Place of Residence: Home Review of Systems 10-point ROS is otherwise unremarkable Physical Examination - Physical Exam General: Alert, Oriented x3 HEENT: EOMI, Sclerae nonicteric Respiratory: Clear to auscultation bilaterally, Normal air movement Cardiovascular: No edema, Regular rate/rhythm Gastrointestinal: Soft and benign, Non-distended, No tenderness Musculoskeletal: No erythema, No tenderness Integumentary: No rashes, No significant lesion Neurological: Normal speech, Normal affect - Studies Laboratory Data (last 24 hrs) 02/22/25 02/22/25 09:00 09:00 WBC 8.80 Hgb 15.4 Hct 44.7 Plt Count 287 Sodium 139 Potassium 4.2 BUN 12 Creatinine 1.13 Glucose 96 Total Bilirubin 0.9 AST < 10 L ALT 42 Alkaline Phosphatase 84 Lipase 38 Assessment and Plan - Advance Directives Does patient have a Living Will: No Does patient have a Durable POA for Healthcare: No Physician Review Additional Text: Problem List Hematemesis GERD ETOH use Nicotine use patient with significant h/o GERD, most days concern for bleeding gastric ulcer, possible yakelin hernandez tear he has not had any further hematemesis here in the ED. small component possibly from nose bleed GI, Dr. Calderon consulted by ED - stated will see today NPO, IVF protonix drip started in ED, will continue counselled on smoking and ETOH cessation VTE: none given GI Bleed, ambulatory Code: full Dispo: home likely tomorrow may possibly need EGD Time Spent Managing Pts Care (In Minutes): 75
[2025-02-22 14:17] VITALS: BMI 29.9
[2025-02-22] MEDS: D5 0.45 NS 1,000 ML IV SCH (14:37)
[2025-02-22] MEDS: PANTOPRAZOLE INJ 80 MG in NA CHLORIDE 0.9% 250 ML IV SCH (14:37)
[2025-02-23 05:37] LABS: Absolute Lymphocytes (CBC) 1.7 K/uL (0.7-4.9); Hematocrit 42.3 % (39.6-49.0); Hemoglobin 14.5 g/dL (13.6-17.9); MCH 30.7 pg (27.0-35.0); MCHC 34.3 g/dL (32.0-36.0); MCV 89.4 fL (80-100); MPV 8.6 fL (7.6-11.3); Nucleated RBC Absolute Count 0.0 (0-0); Nucleated Red Blood Cells % 0.0 % (0-0); RBC Red Blood Cell Count 4.73 M/uL (4.33-5.43); White Blood Count 8.90 thou/uL (4.3-10.9)
[2025-02-23 06:03] LABS: ALT/SGPT 31.0 U/L (16-61); AST/SGOT 17.0 U/L (15-37); Albumin 3.4 g/dL (3.4-5.0); Albumin/Globulin Ratio 1.1 (1.1-1.8); Alkaline Phosphatase 60.0 U/L (45-117); Anion Gap 9.5 mEq/L (5.0-15.0); BUN Blood Urea Nitrogen 7.0 mg/dL (7-18); Globulin 3.1 g/dL (2.3-3.5); Glucose Level 102.0 mg/dL (74-106); Magnesium 2.2 mg/dL (1.6-2.4); Potassium 3.5 mEq/L (3.5-5.1)
[2025-02-23 07:43] LABS: Hematocrit 40.3 % (39.6-49.0); Hemoglobin 13.8 g/dL (13.6-17.9); MCH 30.7 pg (27.0-35.0); MCHC 34.3 g/dL (32.0-36.0); MCV 89.5 fL (80-100); MPV 8.5 fL (7.6-11.3); RBC Red Blood Cell Count 4.50 M/uL (4.33-5.43); White Blood Count 7.80 thou/uL (4.3-10.9)
[2025-02-23] MEDS: MORPHINE 4 MG/ML SYR IV PRN (13:51)
--- NOTE | 2025-02-23 14:32 | P.PN ---
Subjective Date of Service: 02/23/25 Chief Complaint: hematemesis No vomiting since admission, patient denies any melena. He denies any abdominal pain. Physical Examination - Vital Signs Temperature: 97.9 F Blood Pressure: 124/77 Pulse: 55 Respirations: 16 Pulse Ox (%): 95 Assessment And Plan - Plan Physical examination General: Alert and oriented x 3, NAD, HEENT: Conjunctiva not pale, anicteric sclera Neck: Supple, no elevated JVD Heart: Heart sounds 1 and 2 normal, regular rhythm, normal rate, no pedal edema Lungs: Clear to auscultation bilaterally, adequate breath sounds bilaterally, no rhonchi or crackles. Abdomen: Soft, nondistended, nontender, normal bowel sounds. Extremities: No tenderness, no deformity Skin: Normal skin turgor, no rash, no nodules or ulcers. Neuro: No focal motor deficit. Normal speech. Psychiatry: Normal mood, no agitation. Diagnosis Hematemesis GERD ETOH use Nicotine use Plan: Hematemesis secondary to epistaxis with posterior trickling of blood into the stomach versus bleeding gastritis related to alcohol intake. GI, Dr. Calderon consulted by ED. Dr. Calderon plans to evaluate today to decide on EGD. Clear liquid diet today, n.p.o. at midnight. Continue Protonix drip Alcohol cessation advised. Smoking cessation also advised. VTE: Ambulatory Code: full Dispo: Home
[2025-02-24] MEDS: Ringers Lactate 1,000 ML IV ONE (11:59)
[2025-02-24] MEDS ORDERED: LIDOCAINE 1% MPF 5 ML VIAL ONE (12:39)
[2025-02-24 13:15] VITALS: BP 133/82; TEMP 97.1; O2SAT 100
--- NOTE | 2025-02-24 13:52 | P.DS ---
Admission Date: 02/23/25 Discharge Date: 02/24/25 Disposition: ROUTINE DISCHARGE Discharge Condition: FAIR Reason for Admission: hematemesis Brief History of Present Illness: 25yo gentleman with no past medical history presented to ED due to hematemesis. He reports vomiting and had blood / blood clots after throwing up yellowish gastric contents. He reports drinking a lot of alcohol and a remote history of GERD. He also noted a few drops from his nose when bent over the toilet, which he states he typically has when he throws up some times. Workup in the emergency department was unremarkable, patient was admitted for further ma nagement. Hospital Course: Diagnosis Hematemesis secondary to Teetee-Watts tear GERD ETOH use Nicotine use Patient admitted to the medical floor and started on Protonix drip and IV fluid. Hemoglobin was monitored which was stable. Patient did not have any further episodes of hematemesis during the hospital stay. He was evaluated by GI Dr. Calderon who performed EGD and noted patient has Teetee-Watts tear at the GE junction. Patient placed on oral Protonix and deemed stable for discharge. Vital Signs/Physical Exam: Temp Pulse Resp BP Pulse Ox 97.1 F 66 18 133/82 98 02/24/25 13:13 02/24/25 13:13 02/24/25 13:13 02/24/25 13:13 02/24/25 12:00 General: Alert, In no apparent distress, Oriented x3 HEENT: Sclerae nonicteric Neck: Supple, JVD not distended Respiratory: Clear to auscultation bilaterally, Normal air movement Cardiovascular: No edema, Regular rate/rhythm, Normal S1 S2 Capillary refill: <2 Seconds Gastrointestinal: Soft and benign, Non-distended Musculoskeletal: No swelling Integumentary: No rashes, No cyanosis Neurological: Normal strength at 5/5 x4 extr Laboratory Data at Discharge: WBC 7.80 thou/uL (4.3-10.9) 02/23/25 07:29 Hgb 13.8 g/dL (13.6-17.9) 02/23/25 07:29 Hct 40.3 % (39.6-49.0) 02/23/25 07:29 Plt Count 257 thou/uL (152-406) 02/23/25 07:29 Sodium 139 mEq/L (136-145) 02/23/25 05:26 Potassium 3.5 mEq/L (3.5-5.1) D 02/23/25 05:26 BUN 7 mg/dL (7-18) 02/23/25 05:26 Creatinine 1.00 mg/dL (0.70-1.30) 02/23/25 05:26 Glucose 102 mg/dL (74-106) 02/23/25 05:26 Magnesium 2.2 mg/dL (1.6-2.4) 02/23/25 05:26 Total Bilirubin 1.7 mg/dL (0.2-1.0) H 02/23/25 05:26 AST 17 U/L (15-37) 02/23/25 05:26 ALT 31 U/L (16-61) 02/23/25 05:26 Alkaline Phosphatase 60 U/L (45-117) D 02/23/25 05:26 Lipase 38 U/L (13-75) 02/22/25 09:00 Home Medications: Pantoprazole [Protonix Tab*] 40 mg PO ACB #30 tab 02/24/25 New Medications: Pantoprazole [Protonix Tab*] 40 mg PO ACB #30 tab Physician Discharge Instructions: Soft diet and advance as tolerated. Diet: Soft diet Activity: Ad nan Followup: NONE,NONE [Primary Care Provider] - Time spent managing pt's care (in minutes): 32
--- NOTE | 2025-02-24 13:53 | CON ---
Date of Consultation: 02/23/2025 Reason For Consultation: Hematemesis, upper GI bleeding with severe reflux disease. History Of Present Illness: The patient is a 25-year-old male with history of severe reflux and he says "bad gas." The patient presented to the hospital due to first onset of hematemesis star joslyn yesterday and then began having blood and blood clots throw up with yellow gastric contents as we ll. The patient states he has been drinking a lot of alcohol before admission and long history of mo derate to severe reflux disease. He has had bad gas, lot of gas, bloating, belching in the past. Th e patient is concerned. He wanted to find out why this is the case. There was a suspicion, he may h ave had epistaxis as well. The patient states that he thinks his reflux is causing it. Past Medical History: Significant for severe gastroesophageal reflux disease, bad gas, bloating, and belching. Alcohol abuse. Social History: He is single, 1 daughter. No tobacco. He vapes though for the past 3 years and occ asional alcohol. Family History: Father is alive and well. Mother is alive and well. No medical problems as far as he knows. Review of Systems: He has hematemesis. Nausea, vomiting. No significant pain, though he does have severe reflux diseas e. He denies any depression, anxiety, chest pain, shortness of breath, seizure, syncope, hematuria, dysuria, polydipsia. He does have hematemesis, but no coffee-grounds emesis. No melena, hematochezi a. No muscle aches, joint aches, backaches. No seizure or syncope. Physical Examination: Vital Signs: The patient is 5 feet 11 inches, 215 pounds, BMI 30 kg/sq m. HEENT: Normocephalic, atraumatic. Anicteric. Pupils equal, round, and reactive to light. Extraocu lar movements intact. Oropharynx clear. Neck: Supple. No masses. Respirations: Clear to auscultation bilaterally. Cardiac: Regular rate. No gallops or rubs. Gastrointestinal: Positive bowel sounds. Soft, nontender, nondistended. No hepatosplenomegaly. Extremities: No clubbing, cyanosis, or edema. 2+ pulses. Neuro: Alert and oriented x3, grossly nonfocal. 5/5 motor strength. Sensation is intact to light t ouch. Laboratory Data: The patient has a white count of 8.9; hemoglobin 14.5, down from 15.4 yesterday; he matocrit 42; MCV of 89; platelet count of 247; polys of 70%; lymphocytes 19%; monocytes 7%; eosinophi ls 3%. He has a sodium of 139, potassium 3.5, chloride 106, bicarb 27, BUN 7, creatinine of 1.0, glu cose 102, calcium 9.0. Magnesium 3.3. Total bilirubin 1.7 up from 0.9 yesterday, AST of 17, ALT 31, alkaline phosphatase 60, total protein 6.5, albumin 3.4, lipase 38. He had a CT of the abdomen and pelvis, no acute findings. The liver was unremarkable. Impression: 1. Hematemesis, upper gastrointestinal bleeding. Hemoglobin 15.4, down to 14.5 and 13.8. On repeat testing needs to investigate with EGD. 2. Alcohol abuse. He was using heavily before and started having the nausea, vomiting, hematemesis. 3. Possible epistaxis. 4. History of severe reflux disease and bloating and belching. Recommendations: 1. Continue IV fluid resuscitation. 2. Check serial H and H, and transfuse p.r.n. 3. Continue PPI therapy. 4. Consider EGD evaluation. 5. Consider ENT evaluation with consultation. 6. Delirium tremens and alcohol withdrawal precautions. 7. Start thiamine and folate. 8. Benzodiazepines p.r.n. 9. This patient does have alcohol withdrawal. FUAD/MADAN Voice ID: [id number] Report ID: [id number]
[2025-02-25] MEDS ORDERED: PANTOPRAZOLE 40MG TABLET PO SCH (07:30)
== END 2025-02-24 16:24 | disposition home or self-care (01) | DRG 369 ==
LOC: ER 08:17 → ERHOLD 12:11 → 2ND 13:43 → OBSVTOIN 02-23 18:43
PROVIDERS: ADMIT Hospitalist; ATTEND Internal Medicine
PROC: 0DJ08ZZ Inspection of Upper Intestinal Tract, Via Natural or Artificial Opening Endoscopic (ICD-10-PCS; principal; 2025-02-24 12:30)
DX: K22.6 Gastro-esophageal laceration-hemorrhage syndrome (principal); F10.131 Alcohol abuse with withdrawal delirium; K21.9 Gastro-esophageal reflux disease without esophagitis; K44.9 Diaphragmatic hernia without obstruction or gangrene; F17.290 Nicotine dependence, other tobacco product, uncomplicated; R04.0 Epistaxis; Z71.6 Tobacco abuse counseling
CPT/HCPCS: 36415; 72191; 74175; 74176; 80053; 83690; 83735; 85025; 85027; 94760; 96374; 96375; 99284; G0378; J2003; J2405; J2470; J2704; J7050; J7120; J7799; Q9967

== ENCOUNTER 2025-03-05 18:57 | Emergency (ER) | payer SELFPAY ==
[2025-03-05] MEDS ORDERED: IBUPROFEN 400 MG TAB ONE (19:33)
[2025-03-05] MEDS ORDERED: CODEINE 30MG/APAP 300MG TAB ONE (19:33)
--- NOTE | 2025-03-05 19:51 | EDPHYS ---
Physician Documentation [facility] Name: Manny Rapp Age: 25 yrs Sex: Male : 2000 Arrival Date: 03/05/2025 Time: 18:57 Bed 12 Private MD: ED Physician Jamie Aguilar HPI: 03/05 19:30 This 25 yrs old Male presents to ER via Ambulatory with complaints of cp Toothache. 19:30 The patient presents with broken tooth/teeth, pain. The problem is located in the left cp upper back molar. Onset: The symptoms/episode began/occurred for years, pain worse today after biting down on food. Associated signs and symptoms: Pertinent negatives: anorexia, dysphagia, fever, inability to eat, vomiting, facial swelling. Severity of symptoms: in the emergency department the symptoms are unchanged, despite home interventions. Patient reports recently being seen by dentist who prescribed Amoxicillin antibiotic and Tramadol for pain. Ran out of Tramadol and has 2 capsules of Amoxicillin left. F/u appt next Saturday with dentist. Historical: - Allergies: 19:16 No Known Allergies; br2 - PSHx: 19:16 None; br2 - Immunization history:: Adult Immunizations up to date. - Infectious Disease History:: Denies. - Social history:: Smoking status: Reported history of juuling and/or vaping. Patient uses alcohol, occasionally. Patient/guardian denies using street drugs. ROS: 19:33 ENT: Positive for dental pain, cp 19:33 Constitutional: Negative for body aches, chills, fever, poor PO intake, cp 19:33 Cardiovascular: Negative for chest pain, edema, palpitations, 19:33 Respiratory: Negative for cough, shortness of breath, wheezing, 19:33 Abdomen/GI: Negative for abdominal pain, vomiting, diarrhea, constipation, 19:33 Eyes: Negative for injury, pain, redness, and discharge, cp 19:33 Neck: Negative for pain with movement, pain at rest, stiffness, cp 19:33 Skin: Negative for rash, 19:33 Neuro: Negative for altered mental status, headache, weakness, 19:33 All other systems are negative, Exam: 19:35 Constitutional: The patient appears in no acute distress, alert, awake, non-toxic, well cp developed, well nourished, 19:35 Head/Face: Normocephalic, atraumatic. cp 19:35 Eyes: Periorbital structures: appear normal, Conjunctiva: normal, no exudate, no injection, Sclera: no appreciated abnormality, Lids and lashes: appear normal, bilaterally, 19:35 ENT: External ear(s): are unremarkable, Ear canal(s): are normal, clear, TM's: dullness, bilaterally, Nose: is normal, Mouth: Lips: moist, Oral mucosa: moist, Gums: normal with healthy appearance, abscess, is not appreciated, Dental exam: abscess, is not appreciated, dental caries, that is moderate, diffusely, fractured teeth are noted, specifically the upper right third molar (#1), pain, that is moderate, specifically in the upper right third molar (#1), Voice: is normal, 19:35 Neck: ROM/movement: Meningeal signs: are not present, nuchal rigidity, is not appreciated, 19:35 Chest/axilla: Inspection: normal, 19:35 Cardiovascular: Rate: normal, Rhythm: regular, JVD: is not appreciated, 19:35 Respiratory: the patient does not display signs of respiratory distress, Respirations: normal, no use of accessory muscles, no retractions, labored breathing, is not present, Breath sounds: are clear throughout, no decreased breath sounds, no stridor, no wheezing, 19:35 Abdomen/GI: Inspection: abdomen appears normal, Vital Signs: 19:14 BP 145 / 96; Pulse 83; Resp 18; Temp 97.1; Pulse Ox 100% ; Weight 102.06 kg; Height 5 br2 ft. 11 in. ; Pain 10/10; 19:14 Body Mass Index 31.38 (102.06 kg, 180.34 cm) br2 19:14 Pain Scale: Adult br2 MDM: 19:19 Medical Screening Exam initiated cp 19:30 Differential diagnosis: dental caries, dental abscess, pericoronitis, aphthous ulcers, cp gingivostomatitis. 19:50 Data reviewed: vital signs, nurses notes, and as a result, I will discharge patient. cp 19:50 I considered the following discharge prescriptions or medication management in the emergency department Medications were administered in the Emergency Department. See MAR. Counseling: I had a detailed discussion with the patient and/or guardian regarding the historical points, exam findings, and any diagnostic results supporting the discharge/admit diagnosis, the need for outpatient follow up, for definitive care, a dentist, to return to the emergency department if symptoms worsen or persist or if there are any questions or concerns that arise at home. Response to treatment: the patient's symptoms have mildly improved after treatment, and as a result, I will discharge patient. Administered Medications: 19:45 Drug: Acetaminophen-Codeine PO (300 mg-30 mg) 2 tabs PO once; RASS on ADMIN: Combtv4, kj2 Very Agttd3, Agttd2, Rstlss1, AlertClm0, Drwsy-1, Lt Sdtn-2, Mod Sdtn-3, Dp Sdtn-4, UnArsble-5 Route: PO; 19:56 Follow up: Response: No adverse reaction kj2 19:45 Drug: Ibuprofen PO 800 mg PO once Route: PO; kj2 19:56 Follow up: Response: No adverse reaction kj2 Disposition: 03/06 01:50 Co-signature as Attending Physician, Jamie Aguilar DO PA/MACHINE ADJUSTER's history reviewed, tt7 patient interviewed, and examined. I agree with assessment and care plan and confirm the diagnosis (es) above. Disposition Summary: 03/05/25 19:50 Discharge Ordered Notes: Location: Home cp Problem: an ongoing problem cp Symptoms: have improved cp Condition: Stable cp Diagnosis - Disorder of teeth and supporting structures, unspecified cp Followup: cp - With: Private Physician - When: 1 week - Reason: as scheduled for tooth extraction Discharge Instructions: - Discharge Summary Sheet cp - Dental Pain cp Forms: - Medication Reconciliation Form cp - Antibiotic Education cp - Prescription Opioid Use cp - Patient Portal Instructions cp - Leadership Thank You Letter cp Prescriptions: - Amoxicillin 875 mg Oral tablet - take 1 tablet ORAL route every 12 hours for 7 days; 14 tablet; Refills: 0, cp Product Selection Permitted - Anaprox DS 550 mg Oral Tablet - take 1 tablet ORAL route every 12 hours As needed; 20 tablet; Refills: 0, cp Product Selection Permitted Signatures: Christopher Vazquez PA-C PA-C cp Riddle, Belinda, RN RN br2 Ana Davenport RN RN kj2 Jamie Aguilar DO DO tt7
--- NOTE | 2025-03-05 19:51 | ER ---
Nurse's Notes [facility] Name: Manny Rapp Age: 25 yrs Sex: Male : 2000 Arrival Date: 03/05/2025 Time: 18:57 Bed 12 Private MD: Diagnosis: Disorder of teeth and supporting structures, unspecified Presentation: 03/05 19:14 Chief complaint: Patient states: RIGHT UPPER TOOTH PAIN FOR YEARS BUT BIT DOWN ON FOOD br2 TODAY AND MADE IT WORSE. Coronavirus screen: Client denies travel out of the [place] in the last 14 days. Ebola Screen: Patient denies exposure to infectious person. Initial Sepsis Screen: Does the patient meet any 2 criteria? No. Patient's initial sepsis screen is negative. Does the patient have a suspected source of infection? No. Patient's initial sepsis screen is negative. Risk Assessment: Do you want to hurt yourself or someone else? Patient reports no desire to harm self or others. Onset of symptoms is unknown. 19:14 Method Of Arrival: Ambulatory br2 19:14 Acuity: RADHA 5 br2 Triage Assessment: 19:16 General: Appears uncomfortable, Behavior is calm, cooperative. Pain: Complains of pain br2 in right buccal mucosa Historical: - Allergies: 19:16 No Known Allergies; br2 - PSHx: 19:16 None; br2 - Immunization history:: Adult Immunizations up to date. - Infectious Disease History:: Denies. - Social history:: Smoking status: Reported history of juuling and/or vaping. Patient uses alcohol, occasionally. Patient/guardian denies using street drugs. Screenin:[facility] ED Fall Risk Assessment (Adult) History of falling in the last 3 months, kj2 including since admission No falls in past 3 months (0 pts) Confusion or Disorientation No (0 pts) Intoxicated or Sedated No (0 pts) Impaired Gait No (0 pts) Mobility Assist Device Used No (0 pt) Altered Elimination No (0 pt) Score/Fall Risk Level 0 - 2 = Low Risk Maintained a safe environment, Hourly rounding (assess needs \T\ fall precautionary measures) done. Abuse screen: Denies threats or abuse. Denies injuries from another. Nutritional screening: No deficits noted. Tuberculosis screening: No symptoms or risk factors identified. Assessment: 19:30 General: Appears in no apparent distress. Behavior is cooperative. Pain: Complains of kj2 pain in mouth and right buccal mucosa Pain currently is 8 out of 10 on a pain scale. Neuro: Level of Consciousness is awake, alert, obeys commands, Oriented to person, place, time, situation. Cardiovascular: Patient's skin is warm and dry. Respiratory: Airway is patent Respiratory effort is unlabored. GI: No signs and/or symptoms were reported involving the gastrointestinal system. : No signs and/or symptoms were reported regarding the genitourinary system. EENT: Reports pain in right buccal mucosa. Vital Signs: 19:14 BP 145 / 96; Pulse 83; Resp 18; Temp 97.1; Pulse Ox 100% ; Weight 102.06 kg; Height 5 br2 ft. 11 in. ; Pain 10/10; 19:14 Body Mass Index 31.38 (102.06 kg, 180.34 cm) br2 19:14 Pain Scale: Adult br2 ED Course: 18:59 Patient arrived in ED. im 19:00 Christopher Vazquez PA-C is PHCP. cp 19:00 Jamie Aguilar DO is Attending Physician. cp 19:16 Triage completed. br2 19:16 Arm band placed on right wrist. br2 19:26 Ana Davenport, RN is Primary Nurse. kj2 19:30 Patient has correct armband on for positive identification. Bed in low position. Call kj2 light in reach. Adult w/ patient. Provided Education on: call light. 19:53 No provider procedures requiring assistance completed. Patient did not have IV access kj2 during this emergency room visit. Administered Medications: 19:45 Drug: Acetaminophen-Codeine PO (300 mg-30 mg) 2 tabs PO once; RASS on ADMIN: Combtv4, kj2 Very Agttd3, Agttd2, Rstlss1, AlertClm0, Drwsy-1, Lt Sdtn-2, Mod Sdtn-3, Dp Sdtn-4, UnArsble-5 Route: PO; 19:56 Follow up: Response: No adverse reaction kj2 19:45 Drug: Ibuprofen PO 800 mg PO once Route: PO; kj2 19:56 Follow up: Response: No adverse reaction kj2 Medication: 19:50 VIS not applicable for this client. kj2 Outcome: 19:50 Discharge ordered by MD. hu 19:53 Discharged to home ambulatory, with family, kj2 19:53 Condition: stable 19:53 Discharge instructions given to patient, family, Instructed on discharge instructions, follow up and referral plans. Demonstrated understanding of instructions, follow-up care, 19:57 Patient left the ED. kj2 Signatures: Christopher Vazquez, Daniella Le PA-C, cp, Belinda RN RN br2 Ana Davenport RN RN kj2 Corrections: (The following items were deleted from the chart) 19:18 19:14 Pulse 83bpm; Resp 18bpm; Pulse Ox 100%; Temp 97.1F; 102.06 kg; Height 5 ft. 11 br2 in.; BMI: 31.3; Pain 02/19, Adult; br2
[2025-03-06 03:05] VITALS: BP 145/96; TEMP 97.1; O2SAT 100
== END 2025-03-05 19:57 | disposition home or self-care (01) ==
LOC: ER 18:57
DX: K08.89 Other specified disorders of teeth and supporting structures (principal)
CPT/HCPCS: 99283